=== PATIENT | female | born 1955 | race Caucasian/White ===

== ENCOUNTER 2018-04-22 00:18 | Outpatient (CLI) | payer BC, SELFPAY ==
--- NOTE | 2018-04-22 09:11 | DI.MAMMO_ITS ---
SYMPTOMS/DIAGNOSIS: SCREENING, Z12.31 MAMMOGRAM: Mammograms were interpreted according to the usual protocol including computer analysis with CAD system, tomosynthesis and C view imaging. The breasts are of moderate density with fairly symmetrical distribution of fibroglandular tissue. No dominant mass or clumped microcalcification is identified in either breast. Current examination is compared with previous examinations including February 2017 and there has been no gross interval change in appearance in comparison with the previous studies. CONCLUSION: No specific evidence of malignancy at this time. Routine screening examinations are suggested at yearly intervals in this age group according to the ACS/ACR guidelines. Category 1, breast density category B. MQSA ASSESSMENT OF FINDINGS: Negative. Category 1. Patient will receive a letter notifying them of these results. BI-RADS category B. There are scattered areas of fibroglandular density.
== END 2018-04-22 00:38 ==
PROVIDERS: PCP Family Medicine; Visit Provider Family Medicine
DX: Z12.31 Encounter for screening mammogram for malignant neoplasm of breast (principal)
CPT/HCPCS: 77063; 77067

== ENCOUNTER 2018-12-02 00:51 | Outpatient (CLI) | payer BC, SELFPAY ==
--- NOTE | 2018-12-02 15:33 | DI.US_ITS ---
SYMPTOM/DIAGNOSIS: SUPERFICIAL THROMBOPHLEBITIS, I80.9, H/O FALL, TENDER TO PALPATION LEFT LOWER EXTREMITY ULTRASOUND: Thrombus is visible in the popliteal vein and one of the posterior tibial veins. Thrombus is also visible in the saphenous vein extending 1 cm. from the junction with the common femoral vein. A palpable area in the calf corresponds to dilated superficial veins, which also contain thrombus. IMPRESSION: Deep venous thrombosis of the popliteal and one posterior tibial vein. Superficial thrombosis is seen in the saphenous and superficial calf veins.
== END 2018-12-02 01:11 ==
PROVIDERS: PCP Family Medicine; Visit Provider Family Medicine
DX: M79.662 Pain in left lower leg (principal); I82.432 Acute embolism and thrombosis of left popliteal vein; I82.442 Acute embolism and thrombosis of left tibial vein; I82.812 Embolism and thrombosis of superficial veins of left lower extremity
CPT/HCPCS: 93971

== ENCOUNTER 2019-06-13 09:49 | Outpatient (CLI) | payer BC, SELFPAY ==
[2019-06-17 16:36] LABS: Alkaline Phosphatase 132 U/L (35 - 104); Bone % 34.9 % (19.1-67.7); Liver % 60.9 % (27.8-76.3); Liver 2% 4.2 % (0.0-8.0)
== END 2019-06-13 10:09 ==
PROVIDERS: PCP Family Medicine; Visit Provider Naturopath
DX: R74.8 Abnormal levels of other serum enzymes (principal)
CPT/HCPCS: 36415; 84075; 84080

== ENCOUNTER 2019-07-04 03:09 | Outpatient (CLI) | payer BC, SELFPAY ==
--- NOTE | 2019-07-04 09:00 | DI.MAMMO_ITS ---
EXAM: MAMMO SCREENING CLINICAL HISTORY: screening TECHNIQUE: Mammograms were interpreted according to the usual protocol including computer analysis w [employer] CAD system, tomosynthesis and C-view imaging. COMPARISON: 2009 through 2018 FINDINGS: The breasts are composed of mainly fatty density , Breast Density category A. Right breast: No suspicious masses or suspicious microcalcifications are seen. No skin thickening or abnormal axillary lymph nodes are seen. There has been no significant change from prior exams. Left breast: There is an ovoid nodule in the lateral left breast in the anterior tissue measuring 9 m illimeters in greatest dimension. Spot compression views and ultrasound are requested for further ev aluation. No suspicious calcifications or architectural distortion is seen. IMPRESSION: Right breast: BIRADS Category 1, negative mammogram. Yearly screening mammography is recommended. Left breast: BI-RADS Cat 0 - Assessment Incomplete: Need additional imaging evaluation Breast density category A.
== END 2019-07-04 03:29 ==
PROVIDERS: PCP Family Medicine; Visit Provider Nurse Practitioner Family
DX: Z12.31 Encounter for screening mammogram for malignant neoplasm of breast (principal); R92.8 Other abnormal and inconclusive findings on diagnostic imaging of breast
CPT/HCPCS: 77063; 77067

== ENCOUNTER 2019-07-04 09:02 | Outpatient (CLI) | payer BC, SELFPAY ==
--- NOTE | 2019-07-04 | DI.DEXA_ITS ---
EXAM: XR DEXA BONE DENSITY W/WO SRAVAN INDICATION: SCREENING FOR OSTEOPOROSIS,Z13.820. COMPARISON: No exams were available for comparison TECHNIQUE: Hologic model Horizon C FINDINGS: The SRAVAN image shows no evidence of compression fractures. The bone mineral density measurements of t he lumbar spine correspond to a total T-score of 1.6, in the normal range. There are degenerative ch anges which could falsely elevate the bone mineral density measurements. The bone mineral density jamie surements of the left hip correspond to a total T-score of -0.5 and a femoral neck T-score of -2.1, i n the osteopenic range. The bone mineral density measurements of the left forearm correspond to a T- score of the distal 3rd of -2.2, in the osteopenic range. IMPRESSION: Osteopenia of the left forearm and left hip. Normal bone mineral density of the lumbar spine. DATA REPOSITORY: RADIATION DOSE DELIVERED:
[2019-07-04 10:26] LABS: ALT 12 U/L (14-59); AST 13 U/L (15-37); Albumin 3.7 g/dL (3.4-5.0); Alkaline Phosphatase 145 U/L (46-116); Anion Gap 9.2 mmol/L (3-11); BUN 17 mg/dL (7-18); Bilirubin, Total 0.3 mg/dL (0.2-1.0); CO2 27.8 mmol/L (21.0-32.0); Chloride 106 mmol/L (98-107); Glucose 92 mg/dL (74-106); Potassium 4.4 mmol/L (3.5-5.1); Sodium 143 mmol/L (136-145); Total Protein 6.6 g/dL (6.4-8.2)
[2019-07-04 11:11] LABS: Hemoglobin A1C 5.9 % (3.8-5.6)
== END 2019-07-04 09:22 ==
PROVIDERS: PCP Family Medicine; Visit Provider Naturopath
DX: M85.88 Other specified disorders of bone density and structure, other site (principal); R73.03 Prediabetes
CPT/HCPCS: 36415; 77080; 80053; 83036

== ENCOUNTER 2019-07-11 02:13 | Outpatient (CLI) | payer BC, SELFPAY ==
--- NOTE | 2019-07-11 | DI.US_ITS ---
EXAM: MG MAMMO SCREEN CALL BACK UNI AND US BREAST LT LIMITED CLINICAL HISTORY: F/U ABNL MAMMO, OVOID NODULE LAT LT BREAST. TECHNIQUE: Craniocaudal and mediolateral oblique Full Field Digital Mammography views of the left br east with Computer Aided Diagnosis followed by Tomosynthesis and left breast ultrasound. COMPARISON: Priors available for comparison. FINDINGS: Mammography/Tomosynthesis: Masses/Architectural Distortion: None seen. Asymmetric density in the upper-outer quadrant of the lef t breast, which appears stable compared to prior examinations. Microcalcifications: No suspicious pleomorphic-type are seen. Skin Thickening/Nipple Retraction: None. Left breast US: Echotexture: Normal appearance of the glandular tissue. Shadowing: No suspicious foci. Cyst: None. Solid lesions: None seen. Ductal dilation: None. IMPRESSION: 1. No evidence of malignancy is noted. 2. Six-month follow-up left mammogram is recommended. BI-RADS Cat 3 - 6 month - Probably Benign Finding: Recommend follow-up mammography in 6 months Breast Density - Category B - Scattered areas of fibroglandular density Findings were discussed with the patient on the date of the examination. A negative radiographic report should not delay biopsy if a dominant or clinically suspicious mass is present. Up to ten percent of cancers are not identified on mammography. A negative report may reinforce clinical impression. Adenosis and dense breasts may obscure an underlying neoplasm. False positive reports average 6 to 10%. Patient will receive a letter notifying them of these results.
== END 2019-07-11 02:33 ==
PROVIDERS: PCP Family Medicine; Visit Provider Nurse Practitioner Family
DX: Z12.31 Encounter for screening mammogram for malignant neoplasm of breast (principal); R92.8 Other abnormal and inconclusive findings on diagnostic imaging of breast; N60.82 Other benign mammary dysplasias of left breast
CPT/HCPCS: 76642; 77063; 77067

== ENCOUNTER 2019-11-12 01:13 | Outpatient (CLI) | payer BC, SELFPAY ==
[2019-11-12 10:14] LABS: Hemoglobin A1C 5.4 % (3.8-5.6)
[2019-11-12 10:34] LABS: ALT 10 U/L (14-59); AST 16 U/L (15-37); Albumin 3.5 g/dL (3.4-5.0); Alkaline Phosphatase 167 U/L (46-116); Anion Gap 10.6 mmol/L (3-11); BUN 11 mg/dL (7-18); Bilirubin, Total 0.7 mg/dL (0.2-1.0); CO2 25.4 mmol/L (21.0-32.0); Calcium 8.9 mg/dL (8.5-10.1); Calculated LDL 191 mg/dL (<100); Chloride 100 mmol/L (98-107); Cholesterol 270 mg/dL (<200); Glucose 100 mg/dL (74-106); HDL Cholesterol 54 mg/dL (40-60); Potassium 4.3 mmol/L (3.5-5.1); Sodium 136 mmol/L (136-145); Total Protein 6.4 g/dL (6.4-8.2); Triglyceride 128 mg/dL (<150)
[2019-11-13 04:55] LABS: Vitamin D 25 Total 45.4 ng/ml (30-100)
== END 2019-11-12 01:33 ==
PROVIDERS: PCP Family Medicine; Visit Provider Naturopath
DX: E78.5 Hyperlipidemia, unspecified (principal); R73.03 Prediabetes; R74.8 Abnormal levels of other serum enzymes; E55.9 Vitamin D deficiency, unspecified
CPT/HCPCS: 36415; 80053; 80061; 82306; 83036

== ENCOUNTER 2019-11-13 12:42 | Emergency (ER) | payer BC, SELFPAY ==
[2019-11-13] VITALS (38 sets, daily range): BP systolic 106–171; BP diastolic 54–111; PULSE 73–106; RESP 12–31; TEMP 36–37; O2SAT 96–100
--- NOTE | 2019-11-13 12:45 | RT.EKG_ITS ---
APPROVED REPORT Exam: Resting ECG Patient Location: E HR:82 bpm ECG Measurements Heart Rate [address] 147 P 43 QRSd 88 QRS -47 QT 393 T 17 QTc 453 <Conclusion> Sinus rhythm...normal P axis, V-rate 60- 99 Atrial premature complexes...SV complexes w/ short R-R intvls Inferior infarct, old...Q >35mS, II III aVF
--- NOTE | 2019-11-13 13:00 | DI.CT_ITS ---
EXAM: CT CHEST PE CTA CLINICAL HISTORY: Shortness of breath, history of PE TECHNIQUE: COMPARISON: US ABDOMEN ULTRASOUND (P) from 08/21/2011 FINDINGS: CT angiography of the chest was performed with intravenous infusion 83 cc of Omnipaque 350. Images o btained through the upper abdomen show a fluid attenuation 15 millimeter left hepatic lobe mass consi stent with cyst. Otherwise visualized portions of the liver and spleen are unremarkable. There is a large saddle pulmonary embolus with most prominent embolic components in the left lower lo be lobar segmental and subsegmental vessels. However emboli are noted in multiple right-sided vessel s as well and and also in the lingular vessels. Right lung is clear. Left lung contains peripheral basilar areas of infiltration suggesting pulmonar y infarction. There is a small left pleural effusion. Tracheobronchial tree appears intact. Thoracic aorta is of normal diameter with no evidence of dissection. IMPRESSION: Large saddle pulmonary embolus as described above, probable left lower lobe and lingular areas of per ipheral pulmonary infarction. Left pleural effusion noted. Intraventricular septum is appropriately convex. There is nearly equal diameter of main pulmonary ar marsha and thoracic aorta, each at about 3.1 cm. Mild right ventricular dilatation may be present. L V/RV ratio is greater than 1. No reflux into IVC or hepatic veins. The findings as described are co nsistent with normal to borderline status regarding right ventricular strain.
[2019-11-13 13:27] LABS: Abs Immature Grans 0.03 k/cumm (0.0-0.09); Absolute Basophil Count 0.02 k/cumm (0.0-0.2); Absolute Lymphocyte Count 0.91 k/cumm (1.2-3.4); Absolute Monocyte Count 0.85 k/cumm (0.11-0.7); Basophils % 0.2; Eosinophils % 0.2; HCT 37.6 % (36.0-46.0); HGB 12.2 g/dL (12.0-15.5); Immature Grans % 0.2 %; Lymphocytes % 7.5; Mean Corp. HGB Concentration 32.4 g/dL (32.0-36.0); Mean Corpuscular Hemoglobin 28.1 pg (27.0-33.0); Mean Corpuscular Volume 86.6 fL (80-95); Mean Platelet Volume 10.8 fL (8.0-11.0); Neutrophils % 84.9; Platelet Count 260 x1000/uL (130-400); RBC 4.34 m/cumm (4.00-5.20); RBC Distribution Width 13.3 % (11.7-14.6)
[2019-11-13 13:28] LABS: Absolute Eosinophil Count 0.02 k/cumm (0.0-0.7); Absolute Neutrophil Count 10.27 k/cumm (1.2-6.7)
[2019-11-13 13:47] LABS: ALT 12 U/L (14-59); AST 20 U/L (15-37); Albumin 3.5 g/dL (3.4-5.0); Alkaline Phosphatase 170 U/L (46-116); Anion Gap 9.6 mmol/L (3-11); BUN 10 mg/dL (7-18); Bilirubin, Total 0.5 mg/dL (0.2-1.0); CO2 25.4 mmol/L (21.0-32.0); CREATININE 0.83 mg/dL (0.55-1.02); Chloride 97 mmol/L (98-107); Glucose 118 mg/dL (74-106); NT-proBNP 996 pg/mL (<300); Potassium 3.8 mmol/L (3.5-5.1); Sodium 132 mmol/L (136-145); Total Protein 7.7 g/dL (6.4-8.2); Troponin I < 0.05 ng/mL (<0.06)
[2019-11-13] MEDS: Omnipaque 350 MG/ML 100 ML BTL 83 ML IV (13:52)
[2019-11-13] MEDS: Normal Saline - Diluent 50 ML VIAL IV (13:53)
[2019-11-13] MEDS: Normal Saline Flush 10 ML SYR IV (13:54)
[2019-11-13 13:55] LABS: PTT Activated 27.9 sec (21.0-31.4); Prothrombin Time 9.9 sec (9.3-11.0)
--- NOTE | 2019-11-13 14:46 | ED.GENADUL_ITS ---
Discharge Plan Disposition Patient Disposition: [facility] Condition: Serious Discharge Details Chief Complaint: SOB Clinical Impression: Acute saddle pulmonary embolism Primary Care Provider: Jenn Escobar ED Provider: Prem Lerma Home Meds and New Rx's Prescriptions: No Action cardio vh PO TID RF: 0 Nature-Throid 16.25 MG tablet 16.25 mg PO DAILY RF: 0 cholecalciferol (vitamin D3) 5,000 UNIT tablet 5,000 unit PO DAILY RF: 0 Zinc supreme PO DAILY RF: 0 Niacin [Plain Niacin] 250 MG tablet 250 mg PO DAILY RF: 0 Medical Decision Making 64-year-old female with history of thyroid disease, DVT, not anticoagulated, hyperlipidemia, presents to the ER today with 1 week history of shortness of breath and one-sided chest pain. Initially my primary concern is that of PE given her shortness of breath, history of DVT and not currently anticoagulated. Denies cough or fever. Infectious process less likely. Pain appears to be all left lateral chest associate with shortness of breath, denies any anterior chest pain or any pain that radiates down her arm. Less likely ACS. Will initiate a cardiac work-up and go straight to a chest CTA for potential PE. She clinically appears well, hemodynamically stable. Work-up reveals a white count of 12.1, sodium 132, chloride 97, glucose 118. Magnesium 2, troponin less than 0.05. BNP 996. I received a phone call from radiology regarding the CT findings. Large saddle pulmonary embolus, probable left lower lobe and lingular areas of peripheral pulmonary infarct. Left pleural effusion noted. The findings are consistent with normal to borderline status regarding right ventricular strain. Patient with a large saddle pulmonary emboli. I reached out to our hospitalist team to discuss treatment and admission however I was referred to the PE team at [facility] for consultation and hopeful transfer as we do not have any ICU beds. I then spoke with the PE team at [facility]. I spoke with Dr. Zhang, who does not believe given the patient's presentation that heparin is indicated. Recommends Lovenox 1 mg/kg, order written. The accepting physician will be Dr. Jimenes. Lovenox administered. I discussed the conversation with our hospitalist team and [facility] with the patient. She understands that she will be transferred into the care of Dr. Jimenes at [facility] for her PE care. Patient remains hemodynamically stable. She has no additional questions or concerns. Medical Records Medical records reviewed: Yes I reviewed the patient's medical records. Lab Data Lab results reviewed: Yes I reviewed the patient's lab results. Lab results narrative: Laboratory Tests Range/Units 11/13/19 11/13/19 11/13/19 13:10 13:10 13:10 WBC (4.4-10.8) k/cumm 12.10 H RBC (4.00-5.20) m/cumm 4.34 Hgb (12.0-15.5) g/dL 12.2 Hct (36.0-46.0) % 37.6 MCV (80-95) fL 86.6 MCH (27.0-33.0) pg 28.1 MCHC (32.0-36.0) g/dL 32.4 RDW (11.7-14.6) % 13.3 Plt Count (130-400) x1000/uL 260 MPV (8.0-11.0) fL 10.8 Immature Gran % % 0.2 Neutrophils % 84.9 Lymphocytes % 7.5 Monocytes % 7.0 Eosinophils % 0.2 Basophils % 0.2 Absolute Neutrophils (1.2-6.7) k/cumm 10.27 H Absolute Lymphocytes (1.2-3.4) k/cumm 0.91 L Absolute Monocytes (0.11-0.7) k/cumm 0.85 H Absolute Eosinophils (0.0-0.7) k/cumm 0.02 Absolute Basophils (0.0-0.2) k/cumm 0.02 PT (9.3-11.0) sec 9.9 INR (0.9-1.1) 1.0 APTT (21.0-31.4) sec 27.9 Sodium (136-145) mmol/L 132 L Potassium (3.5-5.1) mmol/L 3.8 Chloride (98-107) mmol/L 97 L Carbon Dioxide (21.0-32.0) mmol/L 25.4 Anion Gap (3-11) mmol/L 9.6 BUN (7-18) mg/dL 10 Creatinine (0.55-1.02) mg/dL 0.83 Estimated GFR/1.73 m2 (mL/min/1.73m2) >= 60.00 Glucose (74-106) mg/dL 118 H Calcium (8.5-10.1) mg/dL 9.0 Magnesium (1.8-2.4) mg/dL 2.0 Total Bilirubin (0.2-1.0) mg/dL 0.5 AST (15-37) U/L 20 ALT (14-59) U/L 12 L Alkaline Phosphatase (46-116) U/L 170 H Troponin I (<0.06) ng/mL < 0.05 NT-Pro-B Natriuret Pep (<300) pg/mL 996 H Total Protein (6.4-8.2) g/dL 7.7 Albumin (3.4-5.0) g/dL 3.5 ECG Data Attestation: I personally reviewed and interpreted this ECG (s) as follows: Prior ECG tracings: available for review Interpretation: Reviewed and interpreted with Dr. Case, please see his official report. Sinus rhythm, ventricular rate of 82. No STEMI HPI General Mode of arrival: ambulatory . Date/Time Provider Initiated Documentation: 11/13/19 13:03 . Limitations to Documentation: no limitations . Information obtained by: patient . HPI Narrative: This is a 64-year-old female with history of DVT, currently not anticoagulated, lymphedema, thyroid disease, hyperlipidemia, presents to the ER complaining of mild shortness of breath for 1 week, worsening over the past 4 days associate with left-sided chest pain- pressure. She reports the pain is worse with taking a deep breath or lying flat. She reports that her shortness of breath is worse with exertion. The pain now travels up to her shoulder. She initially took Motrin that helped how ever the Motrin is no longer helping. Patient reports that she is seen by a homeopathic provider who has taken her off of all of her medications except for her thyroid pill. She reports that she has not been anticoagulated since last year. Related Data Home Medications Medication Instructions Recorded Confirmed cholecalciferol (vitamin D3) 5,000 unit PO DAILY 03/02/14 11/13/19 thyroid (pork) [Nature-Throid] 16.25 mg PO DAILY 03/02/14 11/13/19 Zinc [place] PO DAILY 01/25/16 Niacin [Plain Niacin] 250 mg PO DAILY tab-cap 08/10/17 11/13/19 cardio vh PO TID 01/24/19 Allergies Allergy/AdvReac Type Severity Reaction Status Date / Time No Known Drug Allergies Allergy Verified 11/13/19 13:06 General Stated Complaint: SOB DANIELLE: 2 Review of Systems Constitutional Constitutional: Denies fatigue, Denies fever(s) and Denies weakness ENT Ears, Nose, Mouth, and Throat: Denies neck pain and Denies sore throat Cardiovascular Cardiovascular: Reports chest pain and Reports dyspnea Respiratory Respiratory: Denies cough and Reports dyspnea Gastrointestinal Gastrointestinal: Denies abdominal pain, Denies nausea and Denies vomiting Genitourinary Genitourinary: Denies dysuria Musculoskeletal Musculoskeletal: Denies back pain, Denies neck pain, Denies numbness and Denies tingling Integumentary/Breasts Skin/Breast: Denies rash Neurologic Neurologic: Denies numbness, Denies tingling and Denies weakness Endocrine Endocrine: Denies fatigue Hematologic/Lymphatic Hematologic/Lymphatic: Denies easy bleeding and Denies easy bruising PFSH Medical History Hx of deep venous thrombosis (Acute) after a fall in 2019 Surgical History Tonsillectomy and adenoidectomy Family History Mother Hyperlipidemia COPD (chronic obstructive pulmonary disease) 85 Father Myocardial infarction Social History Smoking/Tobacco Use Status: Never Substance use type: does not use Current gender identity: female Exam Const General: cooperative, healthy appearing, comfortable and no acute distress Orientation: alert, awake and oriented x3 HENMT Head: normal to inspection, normocephalic and atraumatic Face and sinus: normal facial exam Mouth: moist mucous membranes Throat: posterior oropharynx normal Eyes Conjunctivae: conjunctivae normal Sclera: sclerae normal Neck Neck: normal visual inspection, full ROM, trachea midline, supple and nontender Chest Chest: normal inspection of the chest and normal palpation of entire chest wall Resp Effort & Inspection: normal respiratory effort and able to speak in complete sentences Auscultation: diminished lung sounds bilaterally in the lower lung waldron Cardio Rate: regular rate Rhythm: regular rhythm GI Palpation: soft and nontender Back/Spine/Pelvis Back: No back tenderness Skin General skin exam: no rashes or lesions noted Neuro General: patient alert, patient awake, patient oriented x3, moves all extremities and no focal motor deficits Cognition: normal cognition Speech: speech normal Gait: normal gait Motor: muscle tone normal throughout Sensory Exam: no sensory deficits noted Extrem Right upper extremity: normal to inspection, full ROM and normal capillary refill Left upper extremity: normal to inspection, full ROM, normal capillary refill and shoulder/upper arm Details: inspection abnormal and normal ROM; no tenderness Right lower extremity: full ROM, normal capillary refill, edema Details: pitting and 2+ (Chronic per patient) and lower leg Details: no tenderness Left lower extremity: full ROM, normal capillary refill, edema Details: pitting and 2+ (Chronic per patient) and lower leg Details: no tenderness Psych Appearance: grossly normal Mental Status: mental status grossly normal Course Vital Signs Vital signs: Vital Signs Temperature 37 C 11/13/19 13:00 Pulse 83 11/13/19 13:00 Respiratory Rate 16 11/13/19 13:00 Blood Pressure 171/66 H 11/13/19 13:00 Pulse Oximetry 100 11/13/19 13:00 Temperature 37 C 11/13/19 13:00 Temperature Source Skin 11/13/19 13:00 Pulse 88 11/13/19 13:31 Pulse 79 11/13/19 14:30 Respiratory Rate 22 11/13/19 14:30 Respiratory Effort 11/13/19 13:12 Respiratory Depth Normal 11/13/19 13:12 Respiratory Pattern Normal 11/13/19 13:12 Blood Pressure 133/86 11/13/19 13:31 Blood Pressure Mean 96 11/13/19 13:31 Blood Pressure Position Sitting 11/13/19 13:00 Pulse Oximetry 100 11/13/19 14:29 Oxygen Delivery Method Room Air 11/13/19 13:00 Oxygen Flow Rate 0 11/13/19 13:00 Pain Level 4 11/13/19 13:12 Lab/Test Results Lab/Test Results: Laboratory Tests Range/Units 11/13/19 11/13/19 11/13/19 13:10 13:10 13:10 WBC (4.4-10.8) k/cumm 12.10 H RBC (4.00-5.20) m/cumm 4.34 Hgb (12.0-15.5) g/dL 12.2 Hct (36.0-46.0) % 37.6 MCV (80-95) fL 86.6 MCH (27.0-33.0) pg 28.1 MCHC (32.0-36.0) g/dL 32.4 RDW (11.7-14.6) % 13.3 Plt Count (130-400) x1000/uL 260 MPV (8.0-11.0) fL 10.8 Immature Gran % % 0.2 Neutrophils % 84.9 Lymphocytes % 7.5 Monocytes % 7.0 Eosinophils % 0.2 Basophils % 0.2 Absolute Neutrophils (1.2-6.7) k/cumm 10.27 H Absolute Lymphocytes (1.2-3.4) k/cumm 0.91 L Absolute Monocytes (0.11-0.7) k/cumm 0.85 H Absolute Eosinophils (0.0-0.7) k/cumm 0.02 Absolute Basophils (0.0-0.2) k/cumm 0.02 PT (9.3-11.0) sec 9.9 INR (0.9-1.1) 1.0 APTT (21.0-31.4) sec 27.9 Sodium (136-145) mmol/L 132 L Potassium (3.5-5.1) mmol/L 3.8 Chloride (98-107) mmol/L 97 L Carbon Dioxide (21.0-32.0) mmol/L 25.4 Anion Gap (3-11) mmol/L 9.6 BUN (7-18) mg/dL 10 Creatinine (0.55-1.02) mg/dL 0.83 Estimated GFR/1.73 m2 (mL/min/1.73m2) >= 60.00 Glucose (74-106) mg/dL 118 H Calcium (8.5-10.1) mg/dL 9.0 Magnesium (1.8-2.4) mg/dL 2.0 Total Bilirubin (0.2-1.0) mg/dL 0.5 AST (15-37) U/L 20 ALT (14-59) U/L 12 L Alkaline Phosphatase (46-116) U/L 170 H Troponin I (<0.06) ng/mL < 0.05 NT-Pro-B Natriuret Pep (<300) pg/mL 996 H Total Protein (6.4-8.2) g/dL 7.7 Albumin (3.4-5.0) g/dL 3.5 Critical Care Time Critical Care Time Critical Care Time: Yes Total Critical Care Time: 45 Attestation: Upon my evaluation, this patient had a high probability of clinica lly significant, life-threatening deterioration due to their current medical conditions, which required my direct attention, intervention, and personal management. I have personally provided greater than 30 minutes of critical care time exclusive of the time spend on separately billable procedures. Time includes obtaining a history, examining the patient, pulse oximetry, review of laboratory data, radiology results, discussion with consultants, arranging urgent treatment with development of a management plan, evaluation of patient's response to treatment, and monitoring for potential decompensation. Interventions were performed as documented above.
[2019-11-13] MEDS: Enoxaparin 120 MG/0.8 ML SYR 105 MG SC (15:34)
[2019-11-14 02:02] LABS: COVID-19 RT-PCR UVMMC Result Negative (Negative)
--- NOTE | 2019-11-14 10:54 | PDOC.ERCMPRO ---
- If Service Date Differs Date of service: 11/13/19 Time of Service: 10:54 Care Management Progress Note S/O: CM meets with Roseanna at the request of ED provider to discuss financial difficulties around purchasing medication. Roseanna advises she sees Krista Monzon, naturopathic doctor. She states her PCP used to prescribe her medications, but she switched to a more holistic way of treating her medical issues. Roseanna has health insurance through her employer but the insurance will not pay for naturopathic medicine. She previously paid out of pocket for the medicine prescribed by Dr. Monzon, but the pandemic has had an adverse effect on her household income, as she is working less hours and her partner has also seen a decrease in his income. offers some community resources to help pay for the medication, but Roseanna declines, saying she is meeting with Dr. Monzon in November and the plan is for them to review her medication and to discontinue some of them. A: Roseanna is a 64 year old female who presents in the ED for shortness of breath. P: Testing reveals Roseanna has a massive pulmonary embolism requiring transfer to [facility]. Transport is done via [facility] sr community manager ground transportation.
== END 2019-11-13 17:45 | disposition short-term general hospital (02) ==
PROVIDERS: Emergency Provider Physician Assistant; PCP Family Medicine
DX: I26.92 Saddle embolus of pulmonary artery without acute cor pulmonale (principal); Z86.718 Personal history of other venous thrombosis and embolism; R07.9 Chest pain, unspecified; Z03.818 Encounter for observation for suspected exposure to other biological agents ruled out
CPT/HCPCS: 36415; 71275; 80053; 93005; 96372; 96374; 99291; U0003; 83735; 83880; 84484; 85025; 85610; 85730; 93010; J1650; J2997; J3490

== ENCOUNTER 2020-03-10 01:46 | Outpatient (CLI) | payer BC, SELFPAY ==
--- NOTE | 2020-03-10 | DI.MAMMO_ITS ---
EXAM: MG MAMMO DIAGNOSTIC UNI CLINICAL HISTORY: F/U ABNL MAMMO,,6 MO FOLLOW UP. TECHNIQUE: Craniocaudal and mediolateral oblique Full Field Digital Mammography views of the left br east with Computer Aided Diagnosis followed by Tomosynthesis. COMPARISON: Priors available for comparison FINDINGS: Mammography/Tomosynthesis: Masses/Architectural Distortion: Stable asymmetric density in the outer left breast. No suspicious m asses. Microcalcifictions: No suspicious pleomorphic-type are seen. Skin Thickening/Nipple Retraction: None. IMPRESSION: 1. No evidence of malignancy is noted. 2. A six-month follow-up left mammogram is recommended for re-evaluation. 3. The findings were discussed with the patient on the date of the examination. BI-RADS Category 3 - 6 month - Probably Benign Finding: Recommend follow-up mammography in 6 months Breast Density - Category B - Scattered areas of fibroglandular density A negative radiographic report should not delay biopsy if a dominant or clinically suspicious mass is present. Up to ten percent of cancers are not identified on mammography. A negative report may reinforce clinical impression. Adenosis and dense breasts may obscure an underlying neoplasm. False positive reports average 6 to 10%. Patient will receive a letter notifying them of these results.
== END 2020-03-10 02:06 ==
PROVIDERS: PCP Family Medicine; Visit Provider Nurse Practitioner Family
DX: R92.8 Other abnormal and inconclusive findings on diagnostic imaging of breast (principal)
CPT/HCPCS: 77061; 77065; G0279

== ENCOUNTER 2020-03-10 04:38 | Outpatient (CLI) | payer BC, SELFPAY ==
[2020-03-10 09:00] LABS: Hemoglobin A1C 5.6 % (<5.7)
[2020-03-10 09:41] LABS: Calculated LDL 219 mg/dL (<100); Cholesterol 318 mg/dL (<200); GGT 20 U/L (5-55); HDL Cholesterol 64 mg/dL (40-60); Triglyceride 177 mg/dL (<150)
[2020-03-11 04:47] LABS: Vitamin D 25 Total 39.6 ng/ml (30-100)
== END 2020-03-10 04:58 ==
PROVIDERS: PCP Family Medicine; Visit Provider Family Medicine
DX: E78.5 Hyperlipidemia, unspecified (principal); R73.03 Prediabetes; E55.9 Vitamin D deficiency, unspecified; R74.8 Abnormal levels of other serum enzymes
CPT/HCPCS: 80061; 82306; 82977; 83036; 83915

== ENCOUNTER 2020-04-12 16:44 | Outpatient (REF) | payer BC, SELFPAY ==
--- NOTE | 2020-04-12 16:00 | PAPFT_PTH ---
PATIENT: Roseanna Olson LOC: [facility] U#:[id number] AGE/SX: 65/F ROOM: RE04/12/[address]: NALLELY Carty : 1955 BED: DIS: 04/12/2020 SPEC #: [id number] RECD: 04/12/20 17:59 STATUS: MORALES REQ #: [id number] DIONNE: 04/12/20 16:[address]: My Espinoza DEPT: [facility] Cytology RECD BY: Myesha Schultz ENTERED: 04/12/20 17:59 SP TYPE: PAPFT OTHR DR: Jenn Escobar Tissues: 1 - CX/ENDOCX FOR PAP SMEARS Procedures: PAP THIN PREP/UVM Screening HPV DNA PROBE Comments: [id number]
== END 2020-04-12 17:04 ==
LOC: LBN 16:44
PROVIDERS: PCP Family Medicine; Visit Provider Nurse Practitioner Family
DX: R35.0 Frequency of micturition (principal); Z12.4 Encounter for screening for malignant neoplasm of cervix; Z11.51 Encounter for screening for human papillomavirus (HPV)
CPT/HCPCS: 88142; 87086; 87624

== ENCOUNTER 2020-04-16 11:35 | Outpatient (REF) | payer BC, SELFPAY ==
[2020-04-16 15:07] LABS: TSH (W/Ref FT4) 1.26 uIU/mL (0.36-3.74)
== END 2020-04-16 11:55 ==
LOC: NCHCN 11:35
PROVIDERS: PCP Family Medicine; Visit Provider Family Medicine
DX: E03.9 Hypothyroidism, unspecified (principal)
CPT/HCPCS: 84443

== ENCOUNTER 2020-05-14 04:10 | Outpatient (CLI) | payer BC, SELFPAY ==
[2020-05-14 11:20] LABS: ALT 18 U/L (14-59); AST 20 U/L (15-37); Albumin 3.8 g/dL (3.4-5.0); Alkaline Phosphatase 139 U/L (46-116); Anion Gap 5.6 mmol/L (3-11); BUN 14 mg/dL (7-18); Bilirubin, Total 0.4 mg/dL (0.2-1.0); CO2 29.4 mmol/L (21.0-32.0); CREATININE 0.97 mg/dL (0.55-1.02); Chloride 103 mmol/L (98-107); Estimated GFR 57.64 (mL/min/1.73m2); Glucose 94 mg/dL (74-106); PHOSPHORUS 4.3 mg/dL (2.6-4.7); Potassium 4.5 mmol/L (3.5-5.1); Sodium 138 mmol/L (136-145); Total Protein 6.7 g/dL (6.4-8.2)
[2020-05-17 10:06] LABS: Beta-CrossLaps (B-CTx) 768 pg/mL
[2020-05-17 10:55] LABS: Parathyroid Hormone,Intact 79 pg/mL (19-88)
== END 2020-05-14 04:30 ==
PROVIDERS: PCP Family Medicine; Visit Provider Internal Medicine Endocrinology, Diabetes & Metabolism
DX: R74.8 Abnormal levels of other serum enzymes (principal)
CPT/HCPCS: 36415; 80053; 82523; 83970; 84100

== ENCOUNTER 2020-07-14 00:57 | Outpatient (CLI) | payer BC, SELFPAY ==
--- NOTE | 2020-07-14 15:21 | DI.MAMMO_ITS ---
EXAM: MG MAMMO SCREENING CLINICAL HISTORY: screening. TECHNIQUE: Bilateral full field digital CC and MLO mammographic images were obtained with 3D tomosyn thesis and utilizing computer aided detection (CAD). COMPARISON: Prior mammograms dating back to 2010, the most recent being June 2019 and left breast d iagnostic study 03/10/2020. Breast ultrasound June 2019 was reviewed FINDINGS: Previously described asymmetric density laterally in left breast is again noted, unchanged.. This re peterson benign appearance. There are no spiculated masses nor malignant appearing microcalcification groups. There is no signif icant architectural distortion nor skin thickening-retraction. IMPRESSION: Stable benign findings. No radiographic evidence of malignancy. BI-RADS Category 2 - Benign Findings Breast Density - Category B - Scattered areas of fibroglandular density Breast density Category C or D implies that the patient has dense breast tissue. Dense breast tissue can make it harder to find cancer on a mammogram. Dense breast tissue is also associated with an incr eased risk of breast cancer. This information about the result of the mammogram report was provided to the patient to raise their awareness. Use this report when you speak with the patient about their risks for breast cancer, which includes their family history. At that time, you may recommend additional screening tests (Ultrasoun d or MRI) as these tests may add significant information. A negative radiographic report should not delay biopsy if a dominant or clinically suspicious mass is present. Up to ten percent of cancers are not identified on mammography. A negative report may reinforce clinical impression. Adenosis and dense breasts may obscure an underlying neoplasm. False positive reports average 6 to 10%. Patient will receive a letter notifying them of these results.
== END 2020-07-14 01:17 ==
PROVIDERS: PCP Family Medicine; Visit Provider Nurse Practitioner Family
DX: Z12.31 Encounter for screening mammogram for malignant neoplasm of breast (principal)
CPT/HCPCS: 77063; 77067

== ENCOUNTER 2020-08-13 02:04 | Outpatient (CLI) | payer BC, SELFPAY ==
[2020-08-13 09:45] LABS: Hemoglobin A1C 5.6 % (<5.7)
[2020-08-13 10:47] LABS: Calculated LDL 228 mg/dL (<100); Cholesterol 322 mg/dL (<200); HDL Cholesterol 70 mg/dL (40-60); Triglyceride 123 mg/dL (<150)
[2020-08-16 05:03] LABS: Vitamin D 25 Total 45.8 ng/mL (30-100)
[2020-08-16 16:12] LABS: Zinc, Serum 0.71 mcg/mL (0.66-1.10)
== END 2020-08-13 02:05 | disposition home or self-care (01) ==
LOC: LBO 02:04
PROVIDERS: PCP Family Medicine; Visit Provider Naturopath
DX: E78.5 Hyperlipidemia, unspecified (principal); E55.9 Vitamin D deficiency, unspecified; R73.03 Prediabetes; L60.3 Nail dystrophy
CPT/HCPCS: 36415; 80061; 82306; 83036; 84630

== ENCOUNTER 2021-03-10 02:27 | Outpatient (CLI) | payer BC, SELFPAY ==
[2021-03-10 08:59] LABS: Abs Immature Grans 0.01 10^3/uL (0.0-0.06); Absolute Basophil Count 0.06 10^3/uL (0.0-0.2); Absolute Eosinophil Count 0.09 10^3/uL (0.0-0.7); Absolute Lymphocyte Count 2.01 10^3/uL (1.2-3.4); Absolute Monocyte Count 0.53 10^3/uL (0.1-0.8); Absolute Neutrophil Count 3.24 10^3/uL (1.2-6.7); Eosinophils % 1.5; HCT 37.6 % (36.0-46.0); HGB 11.7 g/dL (11.2-15.7); Immature Grans % 0.2; Lymphocytes % 33.8; MCHC 31.1 % (32.0-36.0); MPV 9.7 fL (8.0-11.0); Monocytes % 8.9; Neutrophils % 54.6; Nucleated RBC 0 %; Platelet Count 309 10^3/uL (130-400); RBC 4.18 10^6/uL (3.93-5.22); RDW 12.9 % (11.7-14.6); RDW-SD 42.5 fL; WBC 5.94 10^3/uL (4.4-10.8)
[2021-03-10 09:32] LABS: Hemoglobin A1C 5.8 % (<5.7)
[2021-03-10 14:52] LABS: Alkaline Phosphatase 138 U/L (46-116)
[2021-03-10 15:24] LABS: Albumin 3.7 g/dL (3.4-5.0); Alkaline Phosphatase 137 U/L (46-116); BUN 10 mg/dL (7-18); Bilirubin, Total 0.4 mg/dL (0.2-1.0); CREATININE 0.8 mg/dL (0.55-1.02); Calcium 8.8 mg/dL (8.5-10.1); Calculated LDL 206 mg/dL (<100); Cholesterol 298 mg/dL (<200); Glucose 95 mg/dL (74-106); HDL Cholesterol 63 mg/dL (40-60); Total Protein 6.4 g/dL (6.4-8.2); Triglyceride 148 mg/dL (<150)
[2021-03-10 15:25] LABS: ALT 13 U/L (14-59); AST 16 U/L (15-37); Anion Gap 7.3 mmol/L (3-11); CO2 29.7 mmol/L (21.0-32.0); Chloride 103 mmol/L (98-107); Potassium 4.6 mmol/L (3.5-5.1); Sodium 140 mmol/L (136-145)
== END 2021-03-10 02:28 | disposition home or self-care (01) ==
LOC: LBO 02:27
PROVIDERS: Internal Medicine Endocrinology, Diabetes & Metabolism; PCP Family Medicine; Visit Provider Naturopath
DX: R74.8 Abnormal levels of other serum enzymes (principal); E78.5 Hyperlipidemia, unspecified; Z86.718 Personal history of other venous thrombosis and embolism
CPT/HCPCS: 36415; 80053; 80061; 83036; 84075; 85025

== ENCOUNTER 2021-05-30 15:19 | Outpatient (CLI) | payer BC, SELFPAY ==
--- NOTE | 2021-05-30 15:15 | DI.RAD_ITS ---
Exam(s) XR STANDING ALIGNMENT XR KNEE RT 1V EXAM: XR STANDING ALIGNMENT CLINICAL HISTORY: preop. TECHNIQUE: 2D digital imaging was performed. Standing AP views were performed from the pelvis throu gh the ankles. COMPARISON: CR XR KNEE 4 VIEW LEFT, XR KNEE 4 VIEW RIGHT from 07/31/2019 CR XR KNEE RT 1V from 05/30/2021 FINDINGS: BONES: No acute fracture is present. No bony destructive lesion is seen. JOINTS: Knees: There is severe narrowing of the medial femoral tibial joint space of the right knee w ith a [id number] appearance. Osteophytes are noted at the femoral condyles and tibial plateaus. T here is varus angulation. Spurring is also seen at the patellofemoral joint. The left knee shows mo derate narrowing of the medial femoral tibial joint space as well as osteophytes from both medial and lateral femoral condyles and tibial plateaus. There is an overall leg length discrepancy at the lev el level of the femoral heads with the left femoral head projecting 10 millimeters superior to the ri ght. The ankle and hip joints are unremarkable. SOFT TISSUE: Normal. IMPRESSION: Severe degenerative changes of medial femorotibial joint space of the right knee. Leg length discrep lorena of approximately 10 millimeters. DATA REPOSITORY: RADIATION DOSE DELIVERED:
== END 2021-05-30 15:20 | disposition home or self-care (01) ==
LOC: DIORS 15:19
PROVIDERS: PCP Family Medicine; Referring Provider Family Medicine; Visit Provider Physician Assistant Surgical
DX: M17.11 Unilateral primary osteoarthritis, right knee (principal); M21.751 Unequal limb length (acquired), right femur
CPT/HCPCS: 73560; 77073

== ENCOUNTER 2021-08-12 00:14 | Outpatient (CLI) | payer BC, SELFPAY ==
--- NOTE | 2021-08-12 | DI.MAMMO_ITS ---
Exam(s) MAMMO SCREENING EXAM: MAMMO SCREENING CLINICAL HISTORY: SCREENIN, Z12.39 TECHNIQUE: Bilateral full field digital CC and MLO mammographic images were obtained with 3D tomosyn thesis and utilizing computer aided detection (CAD). COMPARISON: Available for comparison. FINDINGS: Masses/Architectural Distortion: There is a stable nodular density in the outer left breast seen on t he craniocaudad view. No suspicious masses are seen. No areas of architectural distortion are seen. Microcalcifications: No suspicious pleomorphic-type are seen. Skin Thickening/Nipple Retraction: None. IMPRESSION: 1. No significant interval change with no specific features of malignancy noted. 2. Unless there is more urgent need, screening mammography is recommended, as per [employer] guidelines. BI-RADS Category 1 - Negative Breast Density - Category B - Scattered areas of fibroglandular density Breast density category C or D implies that the patient has dense breast tissue. Dense breast tissue is very common and is not abnormal but dense breast tissue can make it harder to find cancer on a ma mmogram. Also, dense breast tissue may increase their breast cancer risk. This information about the result of the mammogram report was provided to the patient to raise their awareness. Use this report when you speak with the patient about their risks for breast cancer, which includes their family hist ory. At that time, you may recommend for more screening tests (Ultrasound or MRI) as they might be us eful based on their risk. A negative radiographic report should not delay biopsy if a dominant or clinically suspicious mass is present. Up to ten percent of cancers are not identified on mammography. A negative report may reinforce clinical impression. Adenosis and dense breasts may obscure an underlying neoplasm. False positive reports average 6 to 10%. Patient will receive a letter notifying them of these results.
--- NOTE | 2021-08-12 | DI.DEXA_ITS ---
Exam(s) XR DEXA BONE DENSITY W/WO SRAVAN EXAM: XR DEXA BONE DENSITY W/WO SRAVAN CLINICAL HISTORY: OSTEOPENIA, M85.80, ELEVATED ALKALINE PHOSPHATASE, R74.8 TECHNIQUE: COMPARISON: CR XR DEXA BONE DENSITY W/WO SRAVAN from 07/04/2019 FINDINGS: Lateral Spine Image: Unremarkable. No compression deformities identified. Left hip: Total T-Score: -0.9. This compares to -0.5 on the prior examination for a decrease of 4.9 percent in the bone mineral density. Total Z-Score: 0.4 T- and Z-scores: Within normal limits. Note is made of a T-score of -2.9 in the femoral neck. Lumbar Spine: Total T-Score: 1.3. This compares with a total T-score of 1.6 on the prior examination for decrease i n bone mineral density of 2.6 percent. Total Z-Score: 3.2 T- and Z-scores: Within normal limits. IMPRESSION: Findings of osteoporosis in the femoral neck.
== END 2021-08-12 00:34 ==
PROVIDERS: PCP Family Medicine; Visit Provider Family Medicine
DX: Z12.31 Encounter for screening mammogram for malignant neoplasm of breast (principal); M85.88 Other specified disorders of bone density and structure, other site; R74.8 Abnormal levels of other serum enzymes; M81.0 Age-related osteoporosis without current pathological fracture
CPT/HCPCS: 77063; 77067; 77080

== ENCOUNTER 2021-08-29 02:30 | Outpatient (CLI) | payer BC, SELFPAY ==
[2021-08-29 10:58] LABS: ALT 14 U/L (14-59); AST 19 U/L (15-37); Albumin 3.9 g/dL (3.4-5.0); Alkaline Phosphatase 162 U/L (46-116); Anion Gap 10.6 mmol/L (3-11); BUN 12 mg/dL (7-18); Bilirubin, Total 0.5 mg/dL (0.2-1.0); CO2 26.4 mmol/L (21.0-32.0); CREATININE 0.8 mg/dL (0.55-1.02); Calcium 8.8 mg/dL (8.5-10.1); Calculated LDL 241 mg/dL (<100); Chloride 102 mmol/L (98-107); Cholesterol 334 mg/dL (<200); Glucose 90 mg/dL (74-106); HDL Cholesterol 73 mg/dL (40-60); Potassium 4.1 mmol/L (3.5-5.1); Sodium 139 mmol/L (136-145); Total Protein 6.7 g/dL (6.4-8.2); Triglyceride 103 mg/dL (<150)
[2021-08-29 11:18] LABS: Vitamin D 25 Total 37.3 ng/mL (30-100)
[2021-08-29 11:41] LABS: PHOSPHORUS 4.4 mg/dL (2.6-4.7)
[2021-08-29 11:42] LABS: Hemoglobin A1C 6.8 % (<5.7)
[2021-08-30 09:15] LABS: Parathyroid Hormone,Intact 81 pg/mL (19-88)
[2021-08-30 09:48] LABS: HIV-1/2 Ag & Ab Screen Negative (Negative)
[2021-08-30 09:56] LABS: Hepatitis C Ab w Rflx HCV PCR Negative (Negative)
[2021-08-30 15:33] LABS: Beta-CrossLaps (B-CTx) 777 pg/mL
== END 2021-08-29 02:31 | disposition home or self-care (01) ==
LOC: LBO 02:30
PROVIDERS: PCP Family Medicine; Visit Provider Internal Medicine Endocrinology, Diabetes & Metabolism
DX: Z00.00 Encounter for general adult medical examination without abnormal findings (principal); Z11.4 Encounter for screening for human immunodeficiency virus [HIV]; Z11.59 Encounter for screening for other viral diseases; R74.8 Abnormal levels of other serum enzymes; E78.5 Hyperlipidemia, unspecified
CPT/HCPCS: 36415; 80053; 80061; 82306; 82523; 86803; 87389; 83036; 83970; 84100

== ENCOUNTER 2021-10-10 03:52 | Outpatient (CLI) | payer BC, SELFPAY | END 2021-10-10 03:53 | disposition home or self-care (01) | LOC: LBO 03:52 | PROVIDERS: PCP Family Medicine; Visit Provider Student in an Organized Health Care Education/Training Program ==

== ENCOUNTER 2021-10-10 04:00 | Outpatient (CLI) | payer BC, SELFPAY ==
[2021-10-10 08:28] LABS: HCT 33.6 % (36.0-46.0); MCH 28.3 pg (27.0-33.0); MCHC 32.7 % (32.0-36.0); MCV 86 fL (80-95); MPV 10.3 fL (8.0-11.0); Platelet Count 343 10^3/uL (130-400); RBC 3.89 10^6/uL (3.93-5.22); RDW 13.9 % (11.7-14.6); RDW-SD 43.8 fL; WBC 5.77 10^3/uL (4.4-10.8)
[2021-10-10 08:54] LABS: Anion Gap 9.2 mmol/L (3-11); BUN 16 mg/dL (7-18); CO2 24.8 mmol/L (21.0-32.0); CREATININE 0.8 mg/dL (0.55-1.02); Calcium 8.7 mg/dL (8.5-10.1); Chloride 104 mmol/L (98-107); Glucose 96 mg/dL (74-106); Sodium 138 mmol/L (136-145)
[2021-10-10 11:56] LABS: Source Nasal/Nares
[2021-10-10 16:19] LABS: COVID-19 PCR Negative (Negative)
== END 2021-10-10 04:01 | disposition home or self-care (01) ==
LOC: LBO 04:00
PROVIDERS: Physician Assistant; PCP Family Medicine; Visit Provider Student in an Organized Health Care Education/Training Program
DX: M25.561 Pain in right knee (principal); M17.11 Unilateral primary osteoarthritis, right knee; R73.03 Prediabetes; Z20.822 Contact with and (suspected) exposure to COVID-19; Z01.818 Encounter for other preprocedural examination; Z01.812 Encounter for preprocedural laboratory examination
CPT/HCPCS: 36415; 80048; 85027; 87635; 83036

== ENCOUNTER 2021-10-11 09:54 | Day surgery (SDC) | payer BC, SELFPAY ==
[2021-10-11] VITALS (10 sets, daily range): BP systolic 108–149; BP diastolic 51–97; PULSE 59–76; RESP 12–20; TEMP 35.6–36.6; O2SAT 97–100; BMI 35.7
--- NOTE | 2021-10-11 07:42 | W.PM.DS.N ---
DS: Diagnosis Discharge Diagnosis (1) Osteoarthritis of right knee: Status: Chronic Discharge Plan Disposition Patient Disposition: HOME Condition: Good Discharge Details Reason For Visit: Right knee DJD Attending Provider: Guillermo Vidal Primary Care Provider: Jenn Escobar Home Meds and New Rx's Prescriptions: New acetaminophen 500 mg tablet 1,000 mg PO Q8H PRN Qty: 90 0RF Rx Instructions: Take two tablets up to every 8 hours as needed for pain celecoxib [Celebrex] 200 mg capsule 200 mg PO BID Qty: 30 0RF docusate sodium [Colace] 100 mg capsule 100 mg PO BID Qty: 30 0RF pantoprazole 40 mg tablet,delayed release (DR/EC) 40 mg PO DAILY 14 Days Qty: 14 0RF gabapentin 300 mg capsule 300 mg PO QHS Qty: 14 0RF Rx Instructions: Take one tablet at bedtime oxycodone 5 mg tablet 5 mg PO Q4H PRN (Reason: severe post-operative pain) Qty: 18 0RF Rx Instructions: Take one tablet up to every 4 hours as needed for severe pain Continued thyroid (pork) [Christmas Thyroid] 60 mg tablet 60 mg PO DAILY Eliquis 5 mg tablet 2.5 mg PO BID vitamin D15-hyxwg acid 500-400 mcg tablet 1 tab PO DAILY Rx Instructions: administer with a meal berberine-herbal comb no.18 Capsule 1 cap PO TID Label Comments: pt reports dose is 500mg TID bromelains 500 mg tablet 750 mg PO TID whey protein conc-amino acid 24 gram-120 kcal/30 gram powder PO ascorbic acid (vitamin C) 1,000 mg tablet 2 g PO DAILY red yeast rice 600 mg capsule 600 mg PO BID Rx Instructions: give with meal/snack cholecalciferol (vitamin D3) 5,000 UNIT tablet 5,000 unit PO DAILY Niacin [Plain Niacin] 250 MG tablet 500 mg PO TID Vitamin A-Mulsion 3,000 mcg PO DAILY Discontinued acetaminophen [Tylenol Extra Strength] 500 mg tablet 500 mg PO Q6H PRN naproxen sodium [Aleve] 220 mg tablet 220 mg PO BID PRN Discharge Instructions Additional Instructions: Total Knee Discharge Instructions Activity: The most important activity is to walk. You should try to take short walks a few times a day. It is important that when resting you work on keeping the knee straight. Avoid putting a pillow behind the knee as this will encourage flexion. Work on range of motion exercises as provided by Physical Therapy. If you have the [employer] bike coming, this will be your primary tool for exercise after the knee replacement. You should use it and follow the directions for the knee. Utilize the other exercises sparingly based on your symptoms. - Start outpatient physical therapy within 2 weeks. - You should wear the NEVILLE hose on both legs for 2 weeks. You may remove these at night. You may also use any compression sock in place of the NEVILLE hose. - Utilize [employer] to review exercises, see videos on exercises and obtain basic information pertaining to your surgery and your recovery. Dressing: Remove the Carlos wrap by 2 days after your surgery and put on the NEVILLE stocking given to you from the hospital. Keep the surgical dressing (underneath the CARLOS wrap) in place for at least one week. After the first week it may be removed and replaced with light gauze and tape or nothing. The wound and dressing may get wet after 3 days but avoid soaking the dressing or otherwise it will need to be changed. Many people prefer covering the dressing with cling wrap (saran wrap) to minimize it from getting soaked. If it gets wet, just pat dry. If it starts to peel off then it will need to be changed. Medications: - You should take Tylenol and anti-inflammatory Celebrex as your primary pain control medications. If the Celebrex is too expensive or not covered, please call the office for another alternative (Advil/Ibuprofen or Naproxen/Aleve) - You have been prescribed a stronger pain medication Oxycodone for breakthrough pain, take as needed as prescribed. - You have also been prescribed a stomach acid reduction agent Pantoprozole to help reduce stomach acid and reflux. - You have been prescribed Gabapentin to take at night for restlessness and nerve pain. - You will be taking your baseline prescription of Apixaban for DVT prevention. - If you have constipation you should take Colace (which has been prescribed) or Miralax (which is available [id number]). It takes most people 3-4 days to have a bowel movement. Follow-up: 2 weeks If you have any acute concerns or questions, please do not hesitate to contact the office at [phone]. You may contact Dr. Vidal with any questions after hours through the hospital at [phone] or on his cell phone at [phone]. Stand Alone Forms: Anesthesia Discharge InstAnes. CyrusNerve Block Instructions, James Bhagat (DSU) Referrals: Guillermo Vidal MD [ [facility] STAFF PHYSICIAN] - 10/24/21 9:00 am Equipment/Supplies: Walker Activity:: Elevate Remove Dressings/Wound Care:: Do Not Remove Shower/Bathe:: Cover Diet:: As Tolerated Discharge Orders Discharge Orders: Discharge Order (Routine); Ordered 10/11/21 Ordered By: Guillermo Vidal Discharge Data Discharge Date/Time-TO BE ENTERED AT DEPARTURE: 10/11/21 16:45 DS: Summary Time Spent with Patient providing and/or coordinating discharge services: Less than 30 minutes Status at Discharge Functional status at discharge: uses cane/walker Overall status at discharge: patient is progressing back to baseline Mental Status: mental status grossly normal Speech and Movement: speech and movement normal Mood: congruent mood Affect: normal affect Exam Psych Mental Status: mental status grossly normal Speech and Movement: speech and movement normal Mood: congruent mood Affect: normal affect DS: Data Vitals/I&O Vitals and I&O: Intake & Output 10/10/21 10/10/21 10/11/21 11:59 23:59 11:59 Weight 209 lb 15.986 oz PFSH All Active Problems (Updated 10/11/21 @ 10:31 by Frannie Hendrickson) Elevated lipids (Acute 08/10/17) on supplements Acquired hypothyroidism (Acute 08/10/17) Hx pulmonary embolism (Acute) and DVT X2 episodes 2020 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) Osteoarthritis of right knee (Chronic) Prediabetes (Acute) reports jump from 5.8 to 6.8 H in July 2021 Medical History (Updated 10/11/21 @ 10:31 by Frannie Hendrickson) Cardiac murmur reports her naturopathic doctor stated she had a flutter or heart murmur reports it has been mentioned by this provider twice over the past several years Hx of deep venous thrombosis after a fall in 2019 - DVT following considered unprovoked Lymphedema wears compression stockings and sees PT Venous (peripheral) insufficiency lower extremeties Surgical History (Updated 10/11/21 @ 10:31 by Frannie Hendrickson) Hx of colonoscopy Tonsillectomy and adenoidectomy [place] teeth extracted History of additional teeth removed when had braces in her teens Family History Mother Hyperlipidemia COPD (chronic obstructive pulmonary disease) 85 Father Myocardial infarction Social History Smoking/Tobacco Use Status: Never Smoking risk assessment performed?: Yes Alcohol Intake: current Alcohol Intake frequency: a few times a month Drug use: Never Substance use type: does not use Current gender identity: female Do you feel safe at home: Yes Do you feel safe in your relationship?: Yes
[2021-10-11] MEDS: Gabapentin 300 MG CAP PO (10:54)
[2021-10-11] MEDS: Celecoxib 200 MG CAP 400 MG PO (10:54)
[2021-10-11] MEDS: Acetaminophen 500 MG TAB 1000 MG PO (10:54)
[2021-10-11] MEDS: Lactated Ringers 1,000 ML 80 ML IV (11:20)
--- NOTE | 2021-10-11 11:32 | ANES.PREOP_ITS ---
General Info Date of Service Date Performed: 10/11/21 Height: 5 ft 4 in Weight: 94.4 kg Body Mass Index (BMI): 35.7 Surgical Procedure: Operation Date: 10/11/21 13:10 Proposed Procedure Side Surgeon p Knee Total Arthroplasty Cementless CR Right Guillermo Vidal MD Meds Allergies and Home Medications Allergies Allergy/AdvReac Type Severity Reaction Status Date / Time No Known Drug Allergies Allergy Verified 10/11/21 10:31 Home Medication Medication Instructions Recorded cholecalciferol (vitamin D3) 125 5,000 unit PO DAILY 03/02/14 mcg (5,000 unit) tablet thyroid (pork) 60 mg tablet 60 mg PO DAILY 04/12/20 ([place] Thyroid) Niacin [Plain Niacin] 500 mg PO TID 11/19/20 apixaban 5 mg tablet (Eliquis) 2.5 mg PO BID 11/19/20 red yeast rice 600 mg capsule 600 mg PO BID 05/30/21 vitamin B12 500 mcg-folic acid 400 1 tab PO DAILY 09/05/21 mcg tablet acetaminophen 500 mg tablet 500 mg PO Q6H PRN 10/04/21 (Tylenol Extra Strength) ascorbic acid (vitamin C) 1,000 mg 2 g PO DAILY 10/04/21 tablet berberine-herbal comb no.18 capsule 1 cap PO TID 10/04/21 bromelains 500 mg tablet 750 mg PO TID 10/04/21 naproxen sodium 220 mg tablet 220 mg PO BID PRN 10/04/21 (Aleve) whey protein conc-amino acids 24 pwd PO 10/04/21 gram-120 kcal/30 gram oral powder Vitamin A-Mulsion 3,000 mcg PO DAILY 10/10/21 Current Visit Medications: Current Medications Generic Name Dose Route Start Last Admin Trade Name Freq PRN Reason Stop Dose Admin Acetaminophen 1,000 mg 10/11/21 06:00 10/11/21 10:54 Acetaminophen 500 Mg Tab PO 10/11/21 16:00 1,000 mg PREOP JEZ Administration Acetaminophen 1,000 mg 10/11/21 14:00 Acetaminophen 500 Mg Tab PO TID JEZ Celecoxib 400 mg 10/11/21 06:00 10/11/21 10:54 Celecoxib 200 Mg Cap PO 10/11/21 16:00 400 mg PREOP JEZ Administration Celecoxib 200 mg 10/11/21 20:00 Celecoxib 200 Mg Cap PO BID JEZ Docusate Sodium 100 mg 10/11/21 07:40 Docusate Sodium 100 Mg Cap PO BID PRN PRN Constipation Gabapentin 300 mg 10/11/21 06:00 10/11/21 10:54 Gabapentin 300 Mg Cap PO 10/11/21 16:00 300 mg PREOP JEZ Administration Gabapentin 300 mg 10/11/21 22:00 Gabapentin 300 Mg Cap PO HS JEZ Hydromorphone HCl 0.5 mg 10/11/21 07:40 Hydromorphone 2 Mg/Ml Vial IVP Q2H PRN PRN Tranexamic Acid 1,000 mg/ 60 mls @ 360 mls/hr 10/11/21 06:00 Sodium Chloride IVPB 10/11/21 16:00 PREOP JEZ Tranexamic Acid 1,000 mg/ 60 mls @ 360 mls/hr 10/11/21 06:00 Sodium Chloride IVPB 10/11/21 16:00 DIRECTED [facility] Ringer's Solution 1,000 mls @ 80 mls/hr 10/11/21 06:00 10/11/21 11:20 IV 11/09/21 23:59 80 mls/hr INFUSION JEZ Administration Cefazolin Sodium/Dextrose 2 gm in 50 mls @ 100 mls/hr 10/11/21 06:00 Ancef Duplex IVPB 10/11/21 16:00 PREOP JEZ Cefazolin Sodium/Dextrose 1 gm in 50 mls @ 100 mls/hr 10/11/21 08:00 Ancef Duplex IVPB 10/12/21 00:29 Q8H [facility] IV Miscellaneous Supplies 1 each 10/11/21 06:00 Iv Access IV 11/09/21 23:59 DIRECTED [facility] Ondansetron HCl 4 mg 10/11/21 07:40 Ondansetron 4 Mg/2 Ml Vial IVP Q6H PRN PRN Nausea Oxycodone HCl 0 mg 10/11/21 07:40 Oxycodone 5 Mg Tab PO Q3H PRN PRN Pain Pantoprazole Sodium 40 mg 10/12/21 07:30 Pantoprazole 40 Mg Tabcr PO DAILY@0730 JEZ Polyethylene Glycol 17 gm 10/11/21 07:40 Polyethylene Glycol 3350 17 Gm Packet PO BID PRN PRN Constipation Sodium Chloride 0 ml 10/11/21 06:00 Normal Saline Flush 10 Ml Syr IV 11/09/21 23:59 PRN PRN Sodium Chloride 0 ml 10/11/21 06:00 Normal Saline 10 Ml Vial IJ 11/09/21 23:59 DIRECTED PRN Sterile Water 0 ml 10/11/21 06:00 Water,Injection,Sterile 10 Ml Vial IJ 11/09/21 23:59 DIRECTED PRN PFSH Active Problems Active Problems: Problem Status Onset Code Elevated lipids 08/10/17 E78.5 Acquired hypothyroidism 08/10/17 E03.9 Hx pulmonary embolism Z86.711 Mallet deformity of right little finger M20.011 Osteoarthritis of right knee M17.11 Prediabetes R73.03 Medical History Medical History (Updated 10/11/21 @ 10:31 by Frannie Hendrickson) Cardiac murmur reports her naturopathic doctor stated she had a flutter or heart murmur reports it has been mentioned by this provider twice over the past several years Hx of deep venous thrombosis after a fall in 2019 - DVT following considered unprovoked Lymphedema wears compression stockings and sees PT Venous (peripheral) insufficiency lower extremeties Surgical History Surgical History (Updated 10/11/21 @ 10:31 by Frannie Hendrickson) Hx of colonoscopy Tonsillectomy and adenoidectomy [place] teeth extracted History of additional teeth removed when had braces in her teens Tobacco Smoking/Tobacco Use Status: Never Alcohol Alcohol Intake: current Alcohol intake frequency: a few times a month Substance Use Substance use: Never Substance use type: does not use Vital Signs and Lab Results Vital Signs Most Recent Vital Signs in EMR: Most Recent Vital Signs Temp Pulse Resp BP Pulse Ox 36.6 C 74 16 128/83 97 10/11/21 10:49 10/11/21 10:49 10/11/21 10:49 10/11/21 10:49 10/11/21 10:49 Lab Results Blood Type / Crossmatch: No Data to Display Complete Blood Count: White Blood Count 5.77 10^3/uL (4.4-10.8) 10/10/21 08:05 Red Blood Count 3.89 10^6/uL (3.93-5.22) L 10/10/21 08:05 Hemoglobin 11.0 g/dL (11.2-15.7) L 10/10/21 08:05 Hematocrit 33.6 % (36.0-46.0) L 10/10/21 08:05 Platelet Count 343 10^3/uL (130-400) 10/10/21 08:05 Complete Metabolic Panel: Sodium Level 138 mmol/L (136-145) 10/10/21 08:05 Potassium Level 4.0 mmol/L (3.5-5.1) 10/10/21 08:05 Chloride Level 104 mmol/L (98-107) 10/10/21 08:05 Carbon Dioxide Level 24.8 mmol/L (21.0-32.0) 10/10/21 08:05 Blood Urea Nitrogen 16 mg/dL (7-18) 10/10/21 08:05 Creatinine 0.8 mg/dL (0.55-1.02) 10/10/21 08:05 Estimated GFR/1.73 m2 >= 60.00 (mL/min/1.73m2) 10/10/21 08:05 Calcium Level 8.7 mg/dL (8.5-10.1) 10/10/21 08:05 Glucose Level 96 mg/dL (74-106) 10/10/21 08:05 Hemoglobin A1c 6.0 % (<5.7) H 10/10/21 08:05 Liver Function Panel: No Data to Display Coagulation Panel: No Data to Display Cardiac Panel: No Data to Display Arterial Blood Gas: No Data to Display Venous Blood Gas: No Data to Display Pancreas Panel: No Data to Display Thyroid Panel: No Data to Display Infectious Disease: Coronavirus (COVID-19)(PCR) Negative (Negative) 10/10/21 08:15 Coronavirus 2019 Source Nasal/Nares 10/10/21 08:15 Blood Cultures: No Data to Display Toxicology Panel: No Data to Display Anesthesia Assessment and Plan Anesthesia History Personal History: No History of Anesthesia Complications Family History: No Family History of Anesthesia Complications Exercise Tolerance Exercise Tolerance: Metabolic Equivalents>4 Pertinent Negatives Pertinent Negatives: No Symptoms of GERD, No Major Cardiovascular Symptoms or Complaints, No Major Pulmonary Symptoms or Complaints and No History of CVA/TIA Cardiac & Pulmonary Exam Cardiac Exam: Normal S1/S2 Heart Sounds Pulmonary Exam: Clear Bilateral Breath Sounds Implantable Cardiac Device Does patient have a Pacemaker or an ICD?: No Airway Exam Known Difficult Airway: No Mallampati Class: 1 Mouth Opening: Normal (> 3cm) Thyromental Distance: Greater than 3 cm Neck Range of Motion: Full ROM Neck Circumference: Normal Teeth Condition: Normal Dentition ASA Classification ASA Score: ASA 2 Emergency Case?: No NPO Status NPO Status: NPO Clears >2 hours, Solids >8 hours Anesthesia Plan Resuscitation Status: Full Code Anesthesia Technique: Spinal Anesthesia Airway Planned: Natural Airway Monitors Used: Standard Monitors
[2021-10-11] MEDS: ceFAZolin 2 GM/50 ML BAG IVPB (12:06)
--- NOTE | 2021-10-11 12:36 | W.ANESNERVE ---
Nerve Block Single Injection Procedure Date and Time Date Performed: 10/11/21 Procedure Start: 11:50 Location Where Procedure Performed Procedure Location: Day Surgery Unit (219) Reason Performed: Postoperative Analgesia Requesting Provider: Guillermo Vidal Timeout Performed Timeout Performed: Yes Monitoring Used ECG, Blood Pressure and SpO2 Sterility Sterility: Hand Hygiene, Surgical Cap, Surgical Mask, Sterile Gloves, Eye Protection and Chlorhexidine Sedation Given During Procedure Sedation Given (Indicate Dose Given): No Sedation given Patient Mental Status Patient Mental Status: Awake Nerve Block 1st Nerve Block: Laterality: Right Block Type: Adductor Canal (right) Needle / Catheter Used: 100mm SonoPlex II Local Anesthetic Bolus (Indicate Dose Given): Lidocaine used for local infiltration of skin, Injected in 3-5ml increments after negative blood aspiration and Bupivacaine 0.25% Dose:: 20cc Additives (Indicate Dose Given): None Ultrasound: Sterile probe cover and gel used Ultrasound Image Saved?: Yes Nerve Stimulator: Not Used Paresthesia: None Post Procedure Pain score (0-10): 0 Procedure Tolerated: No Complications and Patient tolerated well Procedure Outcome: Successful Performed By: Oral Valladares
[2021-10-11] MEDS: fentaNYL 100 MCG/2 ML VIAL IVP ×2 (14:10→14:20)
[2021-10-11] MEDS: oxyCODONE 5 MG TAB PO (15:09)
--- NOTE | 2021-10-11 15:20 | W.ANESPOSTOP ---
Postoperative Evaluation Date, Time and Location Date Performed: 10/11/21 Time Performed: 15:20 Patient Location: Day Surgery Unit Vital Signs Most Recent Imported Vital Signs: Most Recent Vital Signs Temp Pulse Resp BP Pulse Ox 36.4 C L 63 16 137/88 100 10/11/21 14:35 10/11/21 14:35 10/11/21 14:35 10/11/21 14:35 10/11/21 14:35 Pain Score Most Recent Pain Score: Most Recent Pain Score Pain Level 4 10/11/21 14:35 Assessment Mental Status: Awake (Alert & Oriented to Patient Baseline) Airway and Respiratory Function: Patent airway with normal (patient baseline) respiratory exam Cardiovascular Function: Hemodynamically Stable Hydration Status: Adequately Hydrated Nausea & Vomiting: No Nausea or Vomiting Pain: Pt. Denies Any Pain Peripheral Nerve Block: Patient did not receive a nerve block
--- NOTE | 2021-10-11 16:40 | PT.INIE ---
Date of service: 10/11/21 Time of Service: 16:39 PT Notes Visit Reasons: Right knee DJD Date: 10/11/2021 Referring: Guillermo Vidal MD MD diagnosis: Status post right TKA PT diagnosis: Status post right TKA Treatment time: 30 minutes Treatment: 20212 Subjective: Patient initially complained of lightheadedness but this resolved once she ambulated. She also noted some mild discomfort throughout the anterior lateral aspect of the right tibia and the posterior lateral aspect of the knee with weightbearing. Objective: 66-year-old female with osteoarthritis of the right knee status post right TKA earlier today. Other problems include lymphedema Functional mobility: Independent with assuming the supine to sitting to standing positions without nausea or vagal reaction. Pulse was regular at 60 bpm. Gait: She ambulated with a wheeled walker weightbearing as tolerated on the right lower extremity with minimal contact guarding, initially to the bathroom, and then approximately 100 feet. She descended and descended 3 steps with railing using proper technique and had good stability. Articular: Her hip and ankle motion are nonirritable. Her right knee motion is -10 to 100 degrees and nonpainful. She has a minimal extension lag Neuro: Intact Assessment: Tolerated upright position well with a stable gait Plan: The session consisted of gait training with a walker, weightbearing as tolerated along with instructing in ascending and descending stairs. She was also instructed in home program consisting of quad and gluteal sets and ankle pumping which is part of her [employer] program. She is a follow-up appointment with Dr. Vidal in 2 weeks. Disclaimer: This note was created using [employer] voice recognition software. It was reviewed for major content. However, there may be multiple small discrepancies and errors due to the voice recognition aspects of the software.
--- NOTE | 2021-10-11 19:19 | ROE_ITS ---
Date of service: 10/11/21 Time of Service: 13:55 Operative Note Operative Note DATE OF PROCEDURE: 10/11/21 PRE-OP DIAGNOSIS: Right Knee Osteoarthritis POST-OP DIAGNOSIS: same PROCEDURE: Right Total Knee Replacement SURGEON: Guillermo Vidal CREATIVE WRITING TEACHER: Thelma Jaimes ANESTHESIA TYPE: Spinal Refer to Anesthesia Record ESTIMATED BLOOD LOSS: 100 PATHOLOGY: none sent TOURNIQUET TIME: 0 COMPLICATIONS: None Patient was transported to: PACU Patient's condition: stable Implants: 1. Depuy Attune Cementless Cruciate Retaining Femoral Component, Size 5 2. Depuy Attune Cementless Rotating Platform Tibial Component, Size 5 3. Depuy Attune 5x10 CR/RP Poly 4. Depuy Attune Patellar Component, Size 35 Indications: I have seen Roseanna in clinic for symptoms of knee arthritis, confirmed with radiographic findings. She has exhausted nonoperative methods and was having significant limitations in daily function and desired better function and less pain. I discussed the technical details of a knee replacement. I explained the risks of the procedure to include, but not limited to, bleeding, infection, pain, stiffness, fracture, damage to nerves and vessels, damage to muscles and tendons, loosening, need for repeat procedure, blood clot and cardiopulmonary demise. Despite these risks, Roseanna elected to proceed. Findings: There was significant signs of arthritis throughout the knee throughout all 3 compartment but concentrated in the medial side. Procedure Description: Roseanna was greeted in the preoperative holding area where the correct side was identified and marked. The consent was reviewed with the patient and signed. The history and physical was updated. All questions were answered. Preoperative medications were administered: Acetaminophen 1000mg, Celebrex 400mg, and Gabapentin 300mg. An adductor canal block was then administered by the anesthesia team in the PACU. Roseanna was taken back to the operating room. A spinal anesthestic was then administered. The patient was placed into the supine position on the operating room table. A nonsterile tourniquet was placed high onto the leg but only used for cementing. Posts were placed for positioning during the procedure. All bony prominences were well padded. Prophylactic antibiotics in the form of Cefazolin were administered. 1g of Tranxemic Acid was given intravenously within 30 minutes of incision. The right leg was then prepped with Chloraprep and draped in a standard fashion with impervious stockinette. A second prep with Chloraprep was performed prior to application of Iodine impregnated skin protection. A timeout to confirm correct identity, side and site, procedure, allergies, anesthesia, and medical concerns was performed. With the knee in some flexion, a midline incision was made overlying the knee. Full thickness skin flaps were raised once the extensor mechanism was encountered. These were raised medially and laterally. Any bleeding was controlled with electrocautery. Once the extensor mechanism was fully exposed, a medial parapatellar arthrotomy was performed in a flexed position. All bleeding from the arthrotomy and the geniculate arteries was coagulated. A medial subperiosteal peel was performed with electrocautery to the midcoronal plane. Due to the significant varus deformity the entire medial tibial plateau was exposed. The fat pad was removed while keeping the patellar tendon protected. The anterior distal femur synovium was removed for later visualization. The ACL and PCL were resected and the anterior horn of the lateral meniscus was transected. The knee was then flexed with the patella everted. Large osteophytes from the tibia were removed. Large osteophytes from the femur were removed. Using a step drill, and based on preoperative templating, the femoral canal was entered. This was done with a step drill without any difficulty. The intramedullary distal femoral cut guide was inserted, set to a 5 degree valgus cut and 9mm cut thickness. The distal femoral cut guide was then held in position and pinned. With the soft tissues protected, the distal cut was performed. This was passed over a few times to ensure a planar cut. I then turned attention to the tibia. The extramedullary guide was placed onto the leg. The distal aspect was slid medial to adjust for position of center of ankle and stay in line with shaft of the tibia. Approximately 3-5 degrees of posterior slope was kept in the proximal cutting guide. The center of the guide was aligned with the PCL. The stylus was used to assess cut thickness. The medial side, most involved side, was set for a 2mm cut. This was then held in position and pinned into place with 2 additional pins and a cross pin for stability. The medial and lateral collateral ligaments were protected and the cut was performed. With this completed, it was assessed and noted to be of appropriate dimensions. The guide was removed. A spacer block was inserted and the knee was brought into extension. The 8mm spacer block provided full extension, without hyperextension and with stability of both the medial and lateral collateral ligaments was ass essed. The pins from the femur and the tibia were then removed. The distal femur was then sized. The anterior stylus was placed onto the lateral ridge of the anterior femur. This indicated a size 5 femur. The external rotation of the guide was adjusted to 3 degrees to match the epicondylar axis, perpendicular to Luis?s line. The 4-in-1 cutting guide was the placed. The posterior medial femur cut was evaluated and appeared of good thickness. The spacer block was inserted underneath the cutting guide and stability was confirmed in 90 degrees of flexion. An ada wing was used to co nfirm appropriate position of the anterior cut to avoid notching. This cutting guide was ensured to be flush on the cut surface and then pinned into place with headed pins. While protecting the soft tissues, quad tendon, and collateral ligaments, the anterior and posterior cuts were performed with a saw. The central two pins were removed and the posterior and anterior chamfers were cut next. The notch-cutting guide was placed. This was pinned to lateralize the femoral component as much as possible while keeping it flush on the cut surface. This was then pinned into position. A reciprocating saw was used to make the notch cut. A rasp smoothed the cut surfaces. The medial and lateral menisci were removed. Large posterior osteophytes were removed, mostly from the medial side of the knee, using a curved osteotome. A trial femoral component was then inserted, impacted down to the cut surfaces, and the lug holes were drilled. A provisional trial tibial component was placed and the knee was brought through range of motion. The polyethylene was trialed until there was good flexion and extension with excellent stability to the medial and lateral collaterals. The patella was tracking without thumbs. A size 10mm polyethylene component provided the best range of motion and stability with less than 2mm gapping with medial and lateral stress and full extension without significant hyperextension. The tibial cut surface was fully exposed. The tibia was then sized as a 5. The tibia had been previously marked during trialing to correspond to the center of the tibial component to help with rotation. The trial was aligned to this guera, approximately rotated to the medial 1/3rd of the tibial tubercle. The trial was pinned into place. The tibia was prepared with a reamer and a keel punch and lug holes. The knee was then brought into extension and the patella was measured as 24mm. Using the patellar clamp and cut guide, this was resected to a flat surface with at least 13mm of thickness remaining. The size 35 patella fit the best. This was oriented and then clamped into position. The lugs were drilled. The trial components were removed. The final components were opened on the back table. The periosteal and capsular tissues, especially posteriorly, around the knee were then systematically injected with a periarticular cocktail consisting of 246mg of Ropivacaine, 0.5mg of Epinephrine, 0.08mg of Clonidine, and 30mg of Ketorolac, diluted to 100cc. On the back table, with the implants opened, the cement was mixed. One batch of high viscosity cement was prepared with vacuum assistance. After the cement was ready a small amount was placed on the cut surface of the patella and the patellar button was clamped into position and held. While the cement was hardening, the cementless knee components were placed. Starting with the tibial component, the tibia was subluxed anteriorly and the lug holes of the component were lined up. The tibia was then impacted with an impactor and mallet until the tibial component was in contact with the tibia. The final polyethylene component was inserted. Then, the femoral component was inserted. The lug holes were aligned and the component was impacted into position. The knee was irrigated with Surgiphor Betadine solution. This was allowed to sit in the knee for 3 minutes and then it was irrigated out with saline. After the cement had finally cured, approximately 15min, the clamp was removed from the patella and the knee was taken through range of motion. The patella was tracking with a no-thumbs technique. The capsule was then reapproximated with a No. 1 Vicryl at multiple locations. The capsule was finally closed with a No. 2 Stratafix, barbed suture. The second dosing of 1g TXA was started. Deep tissues were then reapproximated with 0 Vicryl and 2-0 Vicryl. The skin was closed with a running 3-0 Monocryl in a subcuticular fashion. This was reinforced with skin glue. A Mepilex silver dressing was applied along with a [id number] STACIA wrap. A CryoCuff was applied. Roseanna was transferred to the hospital bed without difficulty an suffering no apparent complication. Roseanna has a good prognosis. Physical therapy will start today and without restrictions, weight-bearing as tolerated. Aspirin 81mg BID will be used for DVT prophylaxis.
== END 2021-10-11 16:45 | disposition home or self-care (01) ==
PROVIDERS: PCP Family Medicine; Visit Provider Student in an Organized Health Care Education/Training Program
PROC: (CPT 27447; principal; 2021-10-11 13:00)
DX: M17.11 Unilateral primary osteoarthritis, right knee (principal); E78.5 Hyperlipidemia, unspecified; E03.9 Hypothyroidism, unspecified; Z86.711 Personal history of pulmonary embolism; R73.03 Prediabetes
CPT/HCPCS: 27447; 76942; 97162; J0690; J1100; J2250; J2370; J2405; J3010

== ENCOUNTER 2021-10-24 11:45 | Outpatient (CLI) | payer BC, SELFPAY ==
--- NOTE | 2021-10-24 08:45 | DI.RAD_ITS ---
Exam(s) XR KNEE RT 1V EXAM: XR KNEE RT 1V CLINICAL HISTORY: 1ST POST OP R TKA. TECHNIQUE: 2D digital imaging was performed. COMPARISON: CR XR KNEE RT 1V from 05/30/2021 FINDINGS: Single lateral view of the right knee Components of the recently placed prosthesis are in satisfactory position alignment. No fracture or loosening evident on this single view study. IMPRESSION: DATA REPOSITORY: RADIATION DOSE DELIVERED:
--- NOTE | 2021-10-24 08:45 | DI.RAD_ITS ---
Exam(s) XR STANDING ALIGNMENT EXAM: XR STANDING ALIGNMENT CLINICAL HISTORY: 1ST POST OP R TKA. TECHNIQUE: 2D digital imaging was performed. COMPARISON: Prior study 05/30/2021 FINDINGS: There has been interval placement of a right knee prosthesis. Components appear to be in satisfactor y position. Moderate narrowing of the medial compartment of the opposite-left knee noted, similar to previous. Hips appear relatively unremarkable as do the ankles. Bone density normal. No osseous l esions. Sacroiliac joints unremarkable. Multilevel degenerative disc disease noted. IMPRESSION: DATA REPOSITORY: RADIATION DOSE DELIVERED:
== END 2021-10-24 11:46 | disposition home or self-care (01) ==
LOC: DIORS 11:46
PROVIDERS: PCP Family Medicine; Referring Provider Family Medicine; Visit Provider Student in an Organized Health Care Education/Training Program
DX: Z96.651 Presence of right artificial knee joint (principal)
CPT/HCPCS: 73560; 77073

== ENCOUNTER 2022-07-26 01:59 | Outpatient (CLI) | payer OTHER, SELFPAY ==
[2022-07-26 08:42] LABS: HCT 38.8 % (36.0-46.0); HGB 12.4 g/dL (11.2-15.7); MCH 27.7 pg (27.0-33.0); MCV 87 fL (80-95); MPV 10.2 fL (8.0-11.0); Platelet Count 325 10^3/uL (130-400); RBC 4.48 10^6/uL (3.93-5.22); RDW 13.7 % (11.7-14.6); RDW-SD 43.2 fL; WBC 6.76 10^3/uL (4.4-10.8)
[2022-07-26 09:02] LABS: Hemoglobin A1C 5.9 % (<5.7)
[2022-07-26 09:33] LABS: Vitamin D 25 Total 34.3 ng/mL (30-100)
[2022-07-26 09:40] LABS: ALT 14 U/L (14-59); AST 18 U/L (15-37); Albumin 3.7 g/dL (3.4-5.0); Alkaline Phosphatase 175 U/L (46-116); Anion Gap 6.7 mmol/L (3-11); BUN 14 mg/dL (7-18); Bilirubin, Total 0.3 mg/dL (0.2-1.0); CO2 28.3 mmol/L (21.0-32.0); CREATININE 0.8 mg/dL (0.55-1.02); Calcium 8.9 mg/dL (8.5-10.1); Calculated LDL 200 mg/dL (<100); Chloride 106 mmol/L (98-107); Cholesterol 304 mg/dL (<200); Estimated GFR 80.71 (mL/min/1.73m2); Ferritin 24 ng/mL (8-252); Folate 14.1 ng/mL (8.6-20.0); Glucose 94 mg/dL (74-106); HDL Cholesterol 85 mg/dL (40-60); Potassium 4.5 mmol/L (3.5-5.1); Sodium 141 mmol/L (136-145); TSH (W/Ref FT4) 1.53 uIU/mL (0.36-3.74); Total Protein 7.4 g/dL (6.4-8.2); Triglyceride 99 mg/dL (<150); Vitamin B12 353 pg/mL (193-986)
== END 2022-07-26 02:00 | disposition home or self-care (01) ==
LOC: LBO 01:59
PROVIDERS: PCP Family Medicine; Visit Provider Family Medicine
DX: Z51.81 Encounter for therapeutic drug level monitoring (principal); I10 Essential (primary) hypertension; E78.5 Hyperlipidemia, unspecified; E03.9 Hypothyroidism, unspecified; M81.0 Age-related osteoporosis without current pathological fracture
CPT/HCPCS: 36415; 80053; 80061; 82306; 85027; 82607; 82728; 82746; 83036; 84443

== ENCOUNTER 2022-08-23 01:40 | Outpatient (CLI) | payer OTHER, SELFPAY ==
--- NOTE | 2022-08-23 | DI.MAMMO_ITS ---
Exam(s) MAMMO SCREENING EXAM: MAMMO SCREENING CLINICAL HISTORY: SCREENING, Z12.39 TECHNIQUE: Mammograms were interpreted according to the usual protocol including computer analysis w [employer] CAD system, tomosynthesis and C-view imaging. COMPARISON: 2013 through 2021 FINDINGS: The breasts are composed of mainly fatty density , Breast Density category A. No suspicious masses or suspicious microcalcifications are seen. No skin thickening or abnormal axillary lymph nodes are seen. There has been no significant change from prior exams. IMPRESSION: BI-RADS Category 1, Negative mammogram Yearly screening mammography is recommended. Breast Density - Category A, fatty density. A negative radiographic report should not delay biopsy if a dominant or clinically suspicious mass is present. Up to ten percent of cancers are not identified on mammography. A negative report may reinforce clinical impression. Adenosis and dense breasts may obscure an underlying neoplasm. False positive reports average 6 to 10%. Patient will receive a letter notifying them of these results.
== END 2022-08-23 02:00 ==
LOC: DI 01:40
PROVIDERS: PCP Family Medicine; Visit Provider Family Medicine
DX: Z12.31 Encounter for screening mammogram for malignant neoplasm of breast (principal)
CPT/HCPCS: 77063; 77067

== ENCOUNTER 2022-09-08 01:07 | Outpatient (CLI) | payer OTHER, SELFPAY ==
[2022-09-08 13:06] LABS: ALT 10 U/L (14-59); Calculated LDL 113 mg/dL (<100); Cholesterol 205 mg/dL (<200); HDL Cholesterol 75 mg/dL (40-60); Triglyceride 87 mg/dL (<150)
[2022-09-11 11:05] LABS: Varicella IgG Antibody Negative (See Note)
== END 2022-09-08 01:08 | disposition home or self-care (01) ==
LOC: LOS 01:09
PROVIDERS: PCP Family Medicine; Visit Provider Family Medicine
DX: Z00.00 Encounter for general adult medical examination without abnormal findings (principal); E78.5 Hyperlipidemia, unspecified; Z11.59 Encounter for screening for other viral diseases; Z01.84 Encounter for antibody response examination
CPT/HCPCS: 36415; 80061; 86787; 84460

== ENCOUNTER 2022-09-26 03:53 | Outpatient (CLI) | payer OTHER, SELFPAY ==
[2022-09-26 10:45] LABS: ALT 13 U/L (14-59); AST 21 U/L (15-37); Albumin 3.7 g/dL (3.4-5.0); Alkaline Phosphatase 164 U/L (46-116); Anion Gap 10.4 mmol/L (3-11); BUN 11 mg/dL (7-18); Bilirubin, Total 0.4 mg/dL (0.2-1.0); CO2 27.6 mmol/L (21.0-32.0); CREATININE 0.9 mg/dL (0.55-1.02); Calcium 8.9 mg/dL (8.5-10.1); Chloride 105 mmol/L (98-107); Estimated GFR 70.07 (mL/min/1.73m2); Glucose 92 mg/dL (74-106); PHOSPHORUS 4.5 mg/dL (2.6-4.7); Potassium 4.1 mmol/L (3.5-5.1); Sodium 143 mmol/L (136-145); Total Protein 7.2 g/dL (6.4-8.2)
[2022-09-27 08:49] LABS: Parathyroid Hormone,Intact 117 pg/mL (19-88)
[2022-09-28 11:36] LABS: Beta-CrossLaps (B-CTx) 901 pg/mL
== END 2022-09-26 03:54 | disposition home or self-care (01) ==
LOC: LBO 03:53
PROVIDERS: PCP Family Medicine; Visit Provider Internal Medicine Endocrinology, Diabetes & Metabolism
DX: R74.8 Abnormal levels of other serum enzymes (principal)
CPT/HCPCS: 36415; 80053; 82306; 82523; 83970; 84100; 84681

== ENCOUNTER 2022-10-25 01:51 | Outpatient (CLI) | payer OTHER, SELFPAY ==
--- NOTE | 2022-10-25 10:15 | DI.NM_ITS ---
Exam(s) NM BONE SCAN WHOLE BODY GRP EXAM: NM BONE SCAN WHOLE BODY GRP CLINICAL HISTORY: SERUM ALKALINE PHOS RAISED, R74.8, ABNL LEVELS OTHER SERUM. TECHNIQUE: Injected Dose: 25 mCi Tc-99m MDP Delayed Images: 2-3 hours. COMPARISON: CR XR KNEE 4 VIEW LEFT, XR KNEE 4 VIEW RIGHT from 07/31/[address] CHEST PE CTA from 11/13/2019 CR XR DEXA BONE DENSITY W/WO SRAVAN from 08/12/2021 CR XR STANDING ALIGNMENT from 10/24/2021 CR XR KNEE RT 1V from 10/24/2021 FINDINGS: Symmetric axial uptake. Bilateral renal excretion is identified. There is increased radiotracer uptak e seen in the cervical spine. There is increased radiotracer uptake anteriorly in the calvarium. It appears to involve the frontal bones bilaterally. There is a photopenic area in the right knee cons istent with the patient's right total knee replacement. There are symmetric areas of increased radio tracer uptake in the shoulders and feet bilaterally likely degenerative in nature. There is increase d radiotracer uptake in the medial aspect of the left knee which is likely degenerative. There is in creased activity on the right in the region of the L5-S1 facet which is degenerative. IMPRESSION: 1. Areas of uptake seen bilaterally symmetrically likely reflecting degenerative changes. This inclu nery the shoulders, the knees and the feet. The patient has a right total knee replacement. 2. Symmetric increased radiotracer uptake in the frontal bones. No priors for comparison. A CT scan of the head or plain films of the calvarium should be obtained for further evaluation. 3. Increased activity seen in the cervical spine. This may be degenerative in nature. However, a ce rvical spine series should be obtained for comparison. Unexpected findings DATA REPOSITORY:
== END 2022-10-25 02:11 ==
LOC: DI 01:52
PROVIDERS: PCP Family Medicine; Visit Provider Internal Medicine Endocrinology, Diabetes & Metabolism
DX: R74.8 Abnormal levels of other serum enzymes (principal); Z96.651 Presence of right artificial knee joint; N28.89 Other specified disorders of kidney and ureter; M13.89 Other specified arthritis, multiple sites
CPT/HCPCS: 78306

== ENCOUNTER 2022-10-26 08:56 | Outpatient (CLI) | payer OTHER, SELFPAY ==
--- NOTE | 2022-10-26 08:30 | DI.RAD_ITS ---
Exam(s) XR KNEE RT 2V AP,LAT EXAM: XR KNEE RT 2V AP,LAT INDICATION: ANNUAL F/U S/P R TKA. COMPARISON: No exams were available for comparison TECHNIQUE: 2D digital imaging was performed. Two views. FINDINGS: There is been no change in the alignment of the total knee prosthesis. There are no suspicious surro unding bony lucencies. DATA REPOSITORY: RADIATION DOSE DELIVERED:
== END 2022-10-26 08:57 | disposition home or self-care (01) ==
LOC: DIORS 08:56
PROVIDERS: PCP Family Medicine; Referring Provider Family Medicine; Visit Provider Student in an Organized Health Care Education/Training Program
DX: Z96.651 Presence of right artificial knee joint (principal); Z47.1 Aftercare following joint replacement surgery
CPT/HCPCS: 73560

== ENCOUNTER 2022-11-01 12:39 | Outpatient (CLI) | payer OTHER, SELFPAY ==
--- NOTE | 2022-11-01 15:15 | DI.RAD_ITS ---
Exam(s) XR SKULL COMPLETE EXAM: XR SKULL COMPLETE CLINICAL HISTORY: CHRONIC MILD ELEVATED ALK PHOS, R74.8, SYMMETRIC UPTAKE IN SKULL ON BONE. TECHNIQUE: 2D digital imaging was performed. COMPARISON: [facility] BONE SCAN WHOLE BODY GRP from 10/25/2022 FINDINGS: No fracture or lytic lesion seen. There is hyperostosis frontalis interna, symmetric bilaterally, ac counting for the increased activity on bone scan. Degenerative changes are also noted in the C5-6 th rough C7-T1 levels, which would account for the uptake seen on bone scan. The sinuses appear clear as visualized. IMPRESSION: Hyperostosis frontalis interna. Degenerative changes of the lower cervical spine. DATA REPOSITORY: RADIATION DOSE DELIVERED:
== END 2022-11-01 12:59 ==
LOC: DI 12:50
PROVIDERS: PCP Family Medicine; Visit Provider Internal Medicine Endocrinology, Diabetes & Metabolism
DX: M85.2 Hyperostosis of skull (principal); M50.322 Other cervical disc degeneration at C5-C6 level; M50.323 Other cervical disc degeneration at C6-C7 level
CPT/HCPCS: 70260

== ENCOUNTER 2022-11-22 16:01 | Outpatient (REF) | payer OTHER, SELFPAY ==
--- NOTE | 2022-11-22 15:30 | PAPFT_PTH ---
PATIENT: Roseanna Olson LOC: [facility] U#:[id number] AGE/SX: 67/F ROOM: RE11/22/[address]: Judy Monge NP : [id number] BED: DIS: 11/22/2022 SPEC #: [id number] RECD: 11/22/22 17:53 STATUS: MORALES RECamryn #: [id number] DIONNE: 11/22/22 15:[address]: Judy Monge NP DEPT: [facility] Cytology RECD BY: Myesha Schultz ENTERED: 11/22/22 17:53 SP TYPE: PAPFT OTHR DR: Jenn Escobar Tissues: 1 - CX/ENDOCX FOR PAP SMEARS Procedures: PAP THIN PREP/UVM Screening HPV DNA PROBE Comments: [id number]
== END 2022-11-22 16:02 | disposition home or self-care (01) ==
LOC: LBN 16:01
PROVIDERS: PCP Family Medicine; Visit Provider Nurse Practitioner Women's Health
DX: Z11.51 Encounter for screening for human papillomavirus (HPV) (principal)
CPT/HCPCS: 88142; 87624

== ENCOUNTER 2022-12-29 02:47 | Outpatient (CLI) | payer OTHER, SELFPAY ==
[2022-12-29 08:56] LABS: HCT 37.2 % (36.0-46.0); MCH 28.2 pg (27.0-33.0); MCHC 32.3 % (32.0-36.0); MCV 87 fL (80-95); MPV 10.3 fL (8.0-11.0); Platelet Count 246 10^3/uL (130-400); RBC 4.26 10^6/uL (3.93-5.22); RDW 12.9 % (11.7-14.6); RDW-SD 41.6 fL; WBC 5.56 10^3/uL (4.4-10.8)
[2022-12-29 09:23] LABS: Hemoglobin A1C 5.8 % (<5.7)
[2022-12-29 09:28] LABS: Iron 68 ug/dL (50-170); Total Iron Binding Capacity 282 ug/dL (250-450); Transferrin Sat 24 % (15-50)
[2022-12-29 09:58] LABS: ALT 15 U/L (14-59); AST 20 U/L (15-37); Albumin 3.4 g/dL (3.4-5.0); Alkaline Phosphatase 149 U/L (46-116); Anion Gap 6.4 mmol/L (3-11); BUN 10 mg/dL (7-18); Bilirubin, Total 0.4 mg/dL (0.2-1.0); CO2 28.6 mmol/L (21.0-32.0); CREATININE 0.8 mg/dL (0.55-1.02); Calcium 8.7 mg/dL (8.5-10.1); Calculated LDL 80 mg/dL (<100); Chloride 104 mmol/L (98-107); Cholesterol 182 mg/dL (<200); Estimated GFR 80.71 (mL/min/1.73m2); Ferritin 35 ng/mL (8-252); Glucose 90 mg/dL (74-106); HDL Cholesterol 77 mg/dL (40-60); Potassium 4.3 mmol/L (3.5-5.1); Sodium 139 mmol/L (136-145); TSH 2.67 uIU/mL (0.36-3.74); Total Protein 6.7 g/dL (6.4-8.2); Triglyceride 125 mg/dL (<150); Vitamin B12 370 pg/mL (193-986)
[2022-12-29 10:15] LABS: FREE T4 0.95 ng/dL (0.76-1.46); PHOSPHORUS 4.2 mg/dL (2.6-4.7)
[2022-12-29 10:18] LABS: Vitamin D 25 Total 51.6 ng/mL (30-100)
[2022-12-29 18:19] LABS: Ionized Calcium 1.08 mmol/L (1.14-1.35)
[2023-01-01 09:10] LABS: Parathyroid Hormone,Intact 68 pg/mL (19-88)
[2023-01-02 13:11] LABS: Beta-CrossLaps (B-CTx) 972 pg/mL
[2023-01-03 13:41] LABS: 1,25-Dihydroxyvitamin D 42 pg/mL (18-78)
[2023-01-03 15:18] LABS: Pyridoxal 5-Phosphate (PLP), P 41 mcg/L (5-50)
== END 2022-12-29 02:48 | disposition home or self-care (01) ==
PROVIDERS: Internal Medicine Endocrinology, Diabetes & Metabolism; PCP Family Medicine; Visit Provider Family Medicine
DX: E03.9 Hypothyroidism, unspecified (principal); E21.0 Primary hyperparathyroidism
CPT/HCPCS: 36415; 80048; 80053; 80061; 82306; 82523; 85027; 82330; 82607; 82652; 82728; 83036; 83540; 83550; 83970; 84100; 84207; 84439; 84443; 84460

== ENCOUNTER 2022-12-29 12:59 | Outpatient (REF) | payer OTHER, SELFPAY ==
[2022-12-29 18:50] LABS: Creatinine,Urine 64.78 mg/dL
[2022-12-29 18:54] LABS: Creatinine,24hr Ur 0.45 g/24hr (0.60-1.80); Total Volume 700 ml
[2023-01-01 09:03] LABS: Calcium Urine 2.2 mg/dL (See Note); Calcium Urine 24 hr 15 mg/24hr (100-300); Timed Urine Volume 700 mL
== END 2022-12-29 13:00 | disposition home or self-care (01) ==
LOC: LBN 12:59
PROVIDERS: PCP Family Medicine; Visit Provider Internal Medicine Endocrinology, Diabetes & Metabolism
DX: E21.0 Primary hyperparathyroidism (principal)
CPT/HCPCS: 81050; 82340; 82570

== ENCOUNTER 2023-05-03 03:44 | Outpatient (CLI) | payer OTHER, SELFPAY ==
[2023-05-03 09:59] LABS: ALT 14 U/L (14-59); AST 24 U/L (15-37); Albumin 3.7 g/dL (3.4-5.0); Alkaline Phosphatase 130 U/L (46-116); Anion Gap 9.7 mmol/L (3-11); BUN 12 mg/dL (7-18); Bilirubin, Total 0.6 mg/dL (0.2-1.0); CO2 28.3 mmol/L (21.0-32.0); CREATININE 0.9 mg/dL (0.55-1.02); Calcium 9.2 mg/dL (8.5-10.1); Chloride 102 mmol/L (98-107); Estimated GFR 69.64 (mL/min/1.73m2); FREE T4 1.43 ng/dL (0.76-1.46); Glucose 98 mg/dL (74-106); PHOSPHORUS 4.2 mg/dL (2.6-4.7); Potassium 4.4 mmol/L (3.5-5.1); Sodium 140 mmol/L (136-145); TSH 1.58 uIU/mL (0.36-3.74); Total Protein 7.1 g/dL (6.4-8.2)
[2023-05-03 10:31] LABS: Vitamin D 25 Total 107.4 ng/mL (30-100)
[2023-05-03 19:30] LABS: Parathyroid Hormone,Intact 84 pg/mL (19-88)
== END 2023-05-03 03:45 | disposition home or self-care (01) ==
LOC: LBO 03:44
PROVIDERS: PCP Family Medicine; Visit Provider Internal Medicine Endocrinology, Diabetes & Metabolism
DX: R74.8 Abnormal levels of other serum enzymes (principal); E03.9 Hypothyroidism, unspecified
CPT/HCPCS: 36415; 80053; 82306; 83970; 84100; 84439; 84443

== ENCOUNTER 2023-05-03 09:31 | Outpatient (REF) | payer OTHER, SELFPAY ==
[2023-05-03 10:22] LABS: Creatinine,Urine 50.72 mg/dL
[2023-05-03 10:41] LABS: Creatinine,24hr Ur 0.66 g/24hr (0.60-1.80); Total Volume 1300 ml
[2023-05-04 10:05] LABS: Calcium Urine 2.2 mg/dL (See Note); Calcium Urine 24 hr 29 mg/24hr (100-300); Timed Urine Volume 1300 mL
== END 2023-05-03 09:32 | disposition home or self-care (01) ==
LOC: LBN 09:31
PROVIDERS: PCP Family Medicine; Visit Provider Internal Medicine Endocrinology, Diabetes & Metabolism
DX: E03.9 Hypothyroidism, unspecified (principal); R74.8 Abnormal levels of other serum enzymes
CPT/HCPCS: 81050; 82340; 82570

== ENCOUNTER → 2023-08-07 02:47 | Outpatient (CLI) | payer OTHER, SELFPAY ==
--- NOTE | 2023-08-07 06:45 | DI.RAD_ITS ---
Exam(s) XR FOOT LT COMPLETE EXAM: XR FOOT LT COMPLETE CLINICAL HISTORY: Left foot pain,M79.672. TECHNIQUE: 2D digital imaging was performed. Three views. COMPARISON: MR MRI - L LOWER EXT WO AND W CON from 08/25/2010 FINDINGS: BONES: No acute fracture is present. No bony destructive lesion is seen. JOINTS: No dislocation present. Severe degenerative changes 1st MTP joint. Mild degenerative hyman es elsewhere. Hammertoe deformities. SOFT TISSUE: Dorsal swelling. IMPRESSION: Degenerative changes 1st MTP joint. Hammertoe deformities. DATA REPOSITORY: RADIATION DOSE DELIVERED:
--- NOTE | 2023-08-07 06:45 | DI.RAD_ITS ---
Exam(s) XR FOOT RT COMPLETE EXAM: XR FOOT RT COMPLETE CLINICAL HISTORY: right foot pain,M79.671. TECHNIQUE: 2D digital imaging was performed. Three views. COMPARISON: None FINDINGS: BONES: No acute fracture is present. No bony destructive lesion is seen. JOINTS: Subluxation of the 2nd MTP joint. Hammertoe deformities. Moderate degenerative changes at 1 st MTP joint and mild hallux valgus. Flattening of the plantar arch. Mild degenerative changes else where. SOFT TISSUE: Swelling. IMPRESSION: Degenerative changes and hammertoe deformities. Pes planus. DATA REPOSITORY: RADIATION DOSE DELIVERED:
== END ==
PROVIDERS: PCP Family Medicine; Visit Provider Podiatrist
DX: M79.671 Pain in right foot (principal); M20.41 Other hammer toe(s) (acquired), right foot; M19.071 Primary osteoarthritis, right ankle and foot; M21.41 Flat foot [pes planus] (acquired), right foot; M79.672 Pain in left foot; M20.42 Other hammer toe(s) (acquired), left foot; M19.072 Primary osteoarthritis, left ankle and foot
CPT/HCPCS: 73630

== ENCOUNTER 2023-10-01 04:43 | Outpatient (CLI) | payer OTHER, SELFPAY ==
[2023-10-01 12:16] LABS: ALT 15 U/L (14-59); AST 20 U/L (15-37); Albumin 3.7 g/dL (3.4-5.0); Alkaline Phosphatase 141 U/L (46-116); Anion Gap 8.6 mmol/L (3-11); BUN 16 mg/dL (7-18); Bilirubin, Total 0.5 mg/dL (0.2-1.0); CO2 25.4 mmol/L (21.0-32.0); CREATININE 0.8 mg/dL (0.55-1.02); Calcium 8.6 mg/dL (8.5-10.1); Calculated LDL 87 mg/dL (<100); Chloride 101 mmol/L (98-107); Cholesterol 188 mg/dL (<200); Estimated GFR 80.21 (mL/min/1.73m2); Glucose 90 mg/dL (74-106); HDL Cholesterol 77 mg/dL (40-60); Sodium 135 mmol/L (136-145); Triglyceride 120 mg/dL (<150)
[2023-10-01 12:24] LABS: Hemoglobin A1C 5.8 % (<5.7)
[2023-10-01 12:59] LABS: FREE T4 1.37 ng/dL (0.76-1.46); PHOSPHORUS 3.4 mg/dL (2.6-4.7); TSH 1.28 uIU/Ml (0.36-3.74)
[2023-10-01 13:36] LABS: Vitamin D 25 Total 90.5 ng/mL (30-100)
[2023-10-01 18:00] LABS: Parathyroid Hormone,Intact 137 pg/mL (19-88)
[2023-10-01 19:24] LABS: Creatinine,Urine 44.95 mg/dL
[2023-10-01 19:26] LABS: Creatinine,24hr Ur 0.76 g/24hr (0.60-1.80); Total Volume 1700 ml
[2023-10-03 08:49] LABS: Calcium Urine 1.5 mg/dL (See Note); Calcium Urine 24 hr 26 mg/24hr (100-300); Timed Urine Volume 1700 mL
== END 2023-10-01 04:44 | disposition home or self-care (01) ==
LOC: LBO 04:43
PROVIDERS: Internal Medicine Endocrinology, Diabetes & Metabolism; PCP Family Medicine; Visit Provider Family Medicine
DX: R74.8 Abnormal levels of other serum enzymes (principal); R73.03 Prediabetes; E78.5 Hyperlipidemia, unspecified; I10 Essential (primary) hypertension
CPT/HCPCS: 36415; 80053; 80061; 82306; 81050; 82340; 82570; 83036; 83970; 84100; 84439; 84443

== ENCOUNTER 2023-11-23 10:00 | Outpatient (CLI) | payer OTHER, SELFPAY ==
--- NOTE | 2023-11-23 09:30 | DI.RAD_ITS ---
Exam(s) XR KNEE LT 3V AP,LAT,SELWYN EXAM: XR KNEE LT 3V AP,LAT,SELWYN CLINICAL HISTORY: left knee pain. TECHNIQUE: 2D digital imaging was performed of the left knee. Three images were obtained. AP, late ral and PA tunnel views were obtained. COMPARISON: CR LEFT KNEE 3 VIEW COMPLETE from 02/14/2013 CR XR STANDING ALIGNMENT from 10/24/2021 FINDINGS: BONES: No acute fracture is present. No bony destructive lesion is seen. JOINTS: Degenerative changes are seen involving all 3 joint compartments characterized by joint space narrowing and osteophytes. The findings are most marked in the medial femoral tibial joint. There is a very small joint effusion. No loose body. SOFT TISSUE: Normal. IMPRESSION: Marked osteoarthritis of the left knee. DATA REPOSITORY: RADIATION DOSE DELIVERED:
== END 2023-11-23 10:01 | disposition home or self-care (01) ==
LOC: DIORS 10:00
PROVIDERS: PCP Family Medicine; Referring Provider Family Medicine; Visit Provider Physician Assistant
DX: M17.12 Unilateral primary osteoarthritis, left knee
CPT/HCPCS: 73562

== ENCOUNTER 2023-12-20 02:40 | Outpatient (CLI) | payer OTHER, SELFPAY ==
--- NOTE | 2023-12-20 | DI.MAMMO_ITS ---
Exam(s) MAMMO SCREENING EXAM: MAMMO SCREENING CLINICAL HISTORY: Screening, Z12.31 TECHNIQUE: Mammograms were interpreted according to the usual protocol including computer analysis w [employer] CAD system, tomosynthesis and C-view imaging. COMPARISON: 2013 through 2022 FINDINGS: The breasts are composed of mainly fatty density , Breast Density category A. No suspicious masses or suspicious microcalcifications are seen. No skin thickening or abnormal axillary lymph nodes are seen. There has been no significant change from prior exams. IMPRESSION: BI-RADS Category 1, Negative mammogram Yearly screening mammography is recommended. Breast Density - Category A, fatty density. A negative radiographic report should not delay biopsy if a dominant or clinically suspicious mass is present. Up to ten percent of cancers are not identified on mammography. A negative report may reinforce clinical impression. Adenosis and dense breasts may obscure an underlying neoplasm. False positive reports average 6 to 10%. Patient will receive a letter notifying them of these results.
== END 2023-12-20 03:00 ==
LOC: DI 02:40
PROVIDERS: PCP Family Medicine; Visit Provider Family Medicine
DX: Z12.31 Encounter for screening mammogram for malignant neoplasm of breast (principal)
CPT/HCPCS: 77063; 77067

== ENCOUNTER 2024-03-31 04:41 | Outpatient (CLI) | payer OTHER, SELFPAY ==
[2024-03-31 09:55] LABS: ALT 15 U/L (14-59); AST 21 U/L (15-37); Albumin 3.7 g/dL (3.4-5.0); Alkaline Phosphatase 132 U/L (46-116); Anion Gap 9.2 mmol/L (3-11); BUN 8 mg/dL (7-18); Bilirubin, Total 0.44 mg/dL (0.2-1.0); CO2 26.8 mmol/L (21.0-32.0); CREATININE 0.9 mg/dL (0.55-1.02); Calcium 8.7 mg/dL (8.5-10.1); Chloride 105 mmol/L (98-107); Glucose 93 mg/dL (74-106); PHOSPHORUS 3.6 mg/dL (2.6-4.7); Potassium 4.2 mmol/L (3.5-5.1); Sodium 141 mmol/L (136-145); Total Protein 7.2 g/dL (6.4-8.2)
[2024-03-31 10:28] LABS: Vitamin D 25 Total 70.4 ng/mL (30-100)
[2024-03-31 10:35] LABS: Creatinine,Urine 29.13 mg/dL
[2024-03-31 10:40] LABS: Total Volume 2400 ml
[2024-03-31 17:48] LABS: Parathyroid Hormone,Intact 146.3 pg/mL (19.0-88.0)
[2024-04-01 09:39] LABS: Calcium Urine 1.1 mg/dL (See Note); Calcium Urine 24 hr 26 mg/24hr (100-300); Timed Urine Volume 2400 mL
== END 2024-03-31 04:42 | disposition home or self-care (01) ==
PROVIDERS: PCP Family Medicine; Referring Provider Internal Medicine Endocrinology, Diabetes & Metabolism; Visit Provider Internal Medicine Endocrinology, Diabetes & Metabolism
DX: E83.59 Other disorders of calcium metabolism (principal); M81.0 Age-related osteoporosis without current pathological fracture; N25.81 Secondary hyperparathyroidism of renal origin
CPT/HCPCS: 36415; 80053; 82306; 81050; 82340; 82570; 83735; 83970; 84100

== ENCOUNTER 2024-04-28 17:46 | Outpatient (REF) | payer OTHER, SELFPAY ==
[2024-04-28 15:51] LABS: HCT 40.4 % (36.0-46.0); HGB 12.5 g/dL (11.2-15.7); MCH 27.8 pg (27.0-33.0); MCHC 30.9 % (32.0-36.0); MCV 90 fL (80-95); Platelet Count 304 10^3/uL (130-400); RBC 4.49 10^6/uL (3.93-5.22); RDW 13.2 % (11.7-14.6); RDW-SD 43.3 fL; WBC 6.97 10^3/uL (4.4-10.8)
== END 2024-04-28 17:47 | disposition home or self-care (01) ==
LOC: NCHCN 17:46
PROVIDERS: PCP Family Medicine; Visit Provider Family Medicine
DX: R53.83 Other fatigue (principal)
CPT/HCPCS: 85027

== ENCOUNTER 2024-06-30 08:17 | Day surgery (SDC) | payer OTHER, SELFPAY ==
--- NOTE | 2024-06-29 06:59 | W.PM.DSUDISC ---
Date of service: 06/30/24 Discharge Plan Disposition Patient Disposition: Home Condition: Good Discharge Details Reason For Visit: screening colonoscopy Attending Provider: William Baires Primary Care Provider: Jenn Escobar Home Meds and New Rx's Prescriptions: Continued berberine-herbal comb no.18 Capsule 1 cap PO TID Patient Comments: pt reports dose is 500mg TID rosuvastatin 10 mg tablet 10 mg PO DAILY cholecalciferol (vitamin D3) [Tbt-A-Vicgawb] 10 mcg/drop (400 unit/drop) drops 10 mcg PO DAILY phentermine 15 mg capsule 15 mg PO DAILY Rx Instructions: must administer 2 hours after breakfast diphenhydramine-acetaminophen [Tylenol PM Extra Strength] 25-500 mg tablet 1 tab PO QHS PRN levothyroxine 88 mcg capsule 88 mcg PO DAILY alendronate 70 mg tablet 70 mg PO QWEEK coQ10 (ubiquinol) 200 mg capsule 200 mg PO DAILY VB6 P5P 100 mg/gram powder 100 mg PO DIRECTED Rx Instructions: magnesium, b-vitamin supplement. Stress B-Complex 500 mg-400 mcg- 23.9 mg-3 mg tablet 1 tab PO DAILY zinc acetate 50 mg (zinc) capsule 50 mg PO DAILY acetaminophen 500 mg tablet 1,000 mg PO Q8H PRN Qty: 90 0RF Rx Instructions: Take two tablets up to every 8 hours as needed for pain Held Eliquis 5 mg tablet 2.5 mg PO BID Hold Instructions: Resume on 07/01/24. Discontinued bisacodyl [Dulcolax (bisacodyl)] 5 mg tablet,delayed release (DR/EC) 5 mg PO ONCE Qty: 4 0RF Rx Instructions: Take per colonoscopy instructions provided by ordering providers office polyethylene glycol 3350 17 gram/dose powder 17 g PO ONCE Qty: 238 0RF Rx Instructions: Take per colonoscopy instructions provided by ordering providers office Discharge Instructions Instructions: Colon polyps Additional Instructions: Roseanna, was very nice meeting you today. I hope you have a great afternoon. Everything went very smoothly. I did find, and removed 2 polyps today. These were both small, nothing to worry about. Both of these polyps will be tested, and once I know the results of the polyp analysis, my office will be in touch with recommendations for your future colonoscopies. I would like you to hold your Eliquis until tomorrow since we did remove 2 polyps today. You can resume it tomorrow as you normally take it. If you need anything, or have any questions, please do not hesitate to ask, otherwise we will be in touch once the polyp report is complete 1. If tolerated, consume a soft, low fiber diet for 1-2 days. 2[address] Do not drive, drink alcohol, operate machinery, make critical decisions, or do activities that require coordination or balance for 24 hours. 3. Because air was put into your colon during the procedure, expelling air from your rectum (passing gas or farting) is normal. 4. You may not have a bowel movement for 1-3 days because of the colonoscopy prep. This is normal. 5. Go directly to the emergency room if you notice any of the following: Develop chills (warm to touch), or if you have a thermometer and your temperature is above 101 Difficulty breathing or difficultly swallowing Persistent vomiting Severe abdominal pain, other than gas cramps Severe chest pain Black, tarry stools Any bleeding ? exceeding one tablespoon 6. Call your physician if the site where your intravenous was started becomes red, swollen, painful, and warm to touch. 7. Your physician has reviewed your pre-procedure medications. Please continue to take those medications as previously ordered. You will be given specific information/education regarding any changes to your medications before leaving. Activity:: Activity as Tolerated Diet:: As Tolerated Discharge Orders Discharge Orders: Discharge Order (Routine); Ordered 06/29/24 Ordered By: William Baires DS: Diagnosis Discharge Diagnosis (1) Encounter for screening colonoscopy: Status: Acute Asessment and Plan: Follow-up on polypectomy results
--- NOTE | 2024-06-29 07:01 | W.COLOREPORT ---
Date of service: 06/30/24 Time of Service: 10:14 Colonoscopy Report Date of procedure: 06/30/24 Pre-op diagnosis general: screening colonoscopy Post-op diagnosis procedure note: other (Colon polyps) Procedure: colonoscopy with polypectomy Surgeon: William Baires Anesthesia Type: General:No Airway Estimated blood loss (mL): 5 Pathology: other (0.25 cm flat polyp at 70 cm, 0.25 cm flat polyp at 55 cm) Complications: None Disposition: same day Indications: Roseanna is a 69 year old woman who needs a screening colonoscopy Prep: Miralax/Dulcolax Procedure Start Time: 09:33 Procedure End Time: 10:01 Retraction Time: 15 Findings: 0.25 cm flat polyp at 70 cm, 0.25 cm flat polyp at 55 cm Procedure Description: After the induction of anesthesia, and with the patient in left lateral decubitus position, I began by performing an external anorectal exam.? Perineum and skin were normal, as was the anal verge.? There was no evidence of external hemorrhoids.? Next, I performed a digital rectal exam.? I did not appreciate any abnormal findings.? Next, I advanced a colonoscope into the rectal vault.? I performed retroflexion.? This appeared normal.? Using insufflation, I then advanced the colonoscope beyond the rectal folds and into the sigmoid colon before advancing towards the cecum.? The quality of the prep was excellent.? The scope was noted to be in the cecum by identification of the ileocecal valve and appendiceal orifice.? I then began withdrawing the colonoscope using repeated irrigation as necessary for full evaluation of the colonic mucosa. Around 70 cm from the anal verge I identified a 0.25 cm polyp. ?It appeared flat in character. ?I was able to remove this with a cold forcep polypectomy. ?I examined the site, and there was minimal bleeding. ?Once this was completed, I continued to withdraw the scope and examine the remainder of the colonic mucosa. Another 0.25 cm flat polyp was found around 55 cm from the anus. This was also removed without any issues using cold forceps. ?Once the scope was withdrawn to the level of the rectum, great care was taken to examine portions of the rectal folds.? Finally, the scope was withdrawn and the patient was brought to the same-day surgery recovery unit as the anesthetic wore off. ?The findings and instructions were shared with the patient prior to discharge. [place] Bowel Prep [place] Bowel Prep Right Colon: 3 Left Colon: 3 Transverse Colon: 3 Total Score: 9
--- NOTE | 2024-06-29 09:02 | ANES.PREOP_ITS ---
General Info Height: 5 ft 3.5 in Weight: 107.048 kg Body Mass Index (BMI): 41.1 Surgical Procedure: Operation Date: 06/30/24 09:50 Proposed Procedure Side Surgeon p Rolly Baires MD Meds Allergies and Home Medications Allergies Allergy/AdvReac Type Severity Reaction Status Date / Time No Known Allergies Allergy Verified 06/27/24 10:35 Home Medication ?Medication ?Instructions ?Recorded apixaban 5 mg tablet (Eliquis) 2.5 mg PO BID 11/19/20 berberine-herbal comb no.18 capsule 1 cap PO TID 10/04/21 acetaminophen 500 mg tablet 1,000 mg (2 x 500 mg) PO Q8H PRN 10/11/21 pain #90 tabs diphenhydramine 25 1 tab PO QHS PRN 11/21/21 mg-acetaminophen 500 mg tablet (Tylenol PM Extra Strength) alendronate 70 mg tablet 70 mg PO QWEEK 02/26/23 coQ10 (ubiquinol) 200 mg capsule 200 mg PO DAILY 02/26/23 levothyroxine 88 mcg capsule 88 mcg PO DAILY 02/26/23 cholecalciferol (vitamin D3) 10 10 mcg PO DAILY 08/03/23 mcg/drop (400 unit/drop) oral drops (Oyp-E-Vnukbfn) rosuvastatin 10 mg tablet 10 mg PO DAILY 08/03/23 pyridoxal-5 phosphate 100 mg/gram 100 mg PO DIRECTED for insomnia 08/07/23 oral powder (VB6 P5P) B complex-C 500 mg-folic 400 1 tab PO DAILY 05/22/24 mcg-zinc 23.9 mg-copper 3 mg-vit E tablet (Stress B-Complex) zinc acetate 50 mg (zinc) capsule 50 mg PO DAILY 05/22/24 phentermine 15 mg capsule 15 mg PO DAILY 05/26/24 Current Visit Medications: Current Medications Generic Name Dose Route Start Last Admin Trade Name Freq PRN Reason Stop Dose Admin Ringer's Solution 1,000 mls @ 80 mls/hr 06/30/24 06:00 IV 06/30/24 23:59 INFUSION JEZ IV Miscellaneous Supplies 1 each 06/30/24 06:00 Iv Access IV 06/30/24 23:59 DIRECTED JEZ Sodium Chloride 0 ml 06/30/24 06:00 Normal Saline Flush 10 Ml Syr IV 06/30/24 23:59 PRN PRN Sodium Chloride 0 ml 06/30/24 06:00 Normal Saline 10 Ml Vial IJ 06/30/24 23:59 DIRECTED PRN Sterile Water 0 ml 06/30/24 06:00 Water,Injection,Sterile 10 Ml Vial IJ 06/30/24 23:59 DIRECTED PRN PFSH Active Problems Active Problems: Problem Status Onset Code Encounter for screening colonoscopy Acute Z12.11 Bilateral hearing loss Acute H91.93 Left knee DJD Chronic M17.12 Injury of plantar plate of left foot Acute S99.922A Hammertoe of left foot Acute M20.42 Contracture of left Achilles tendon Acute M67.02 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 Ventricular premature complex Acute I49.3 Prediabetes Acute R73.03 Urinary incontinence, mixed Acute N39.46 Senile osteoporosis Acute M81.0 Osteoarthritis of knee Acute M17.9 Essential hypertension Acute I10 Bilateral tinnitus Acute H93.13 Plantar nerve lesion Acute G57.60 Anemia Chronic D64.9 Hyperlipidemia Acute E78.5 Hypothyroidism Chronic E03.9 Urinary incontinence Acute R32 Bilateral sensorineural hearing loss Acute H90.3 Depression Chronic F32.A Urinary and bowel incontinence Acute R32, R15.9 Bunion Acute M21.619 Dupuytren's contracture of left hand Acute M72.0 Lymphedema Acute I89.0 Prediabetes Acute R73.03 Mallet deformity of right little finger Acute M20.011 Hx pulmonary embolism Acute Z86.711 Acquired hypothyroidism Acute 08/10/17 E03.9 Elevated lipids Acute 08/10/17 E78.5 Medical History Medical History (Updated 06/29/24 @ 06:59 by William Baires MD) Hyperparathyroidism History of cervical dysplasia Hx of thromboembolism Hx of tinnitus Obesity Other lymphedema Márquez's neuroma PVC (premature ventricular contraction) HTN (hypertension) Pulmonary embolism Elevated alkaline phosphatase level Osteoporosis Situational depression Venous (peripheral) insufficiency lower extremeties Cardiac murmur reports her naturopathic doctor stated she had a flutter or heart murmur reports it has been mentioned by this provider twice over the past several years Hx of deep venous thrombosis after a fall in 2019 - DVT following considered unprovoked Surgical History Surgical History History of total right knee replacement (10/11/21) Hx of colonoscopy [place] teeth extracted History of additional teeth removed when had braces in her teens Tonsillectomy and adenoidectomy Tobacco Smoking/Tobacco Use Status: Never Passive smoking exposure: Yes Alcohol Alcohol Intake: current Alcohol intake frequency: holidays/special occasions only Alcohol type: wine Substance Use Substance use: Never Substance use type: does not use Vital Signs and Lab Results Lab Results Blood Type / Crossmatch: No Data to Display Complete Blood Count: No Data to Display Complete Metabolic Panel: No Data to Display Liver Function Panel: No Data to Display Coagulation Panel: No Data to Display Cardiac Panel: No Data to Display Arterial Blood Gas: No Data to Display Venous Blood Gas: No Data to Display Pancreas Panel: No Data to Display Thyroid Panel: No Data to Display Infectious Disease: No Data to Display Blood Cultures: No Data to Display Toxicology Panel: No Data to Display Anesthesia Assessment and Plan Anesthesia History Personal History: No History of Anesthesia Complications Family History: No Family History of Anesthesia Complications Exercise Tolerance Exercise Tolerance: Metabolic Equivalents>4 Implantable Cardiac Device Does patient have a Pacemaker or an ICD?: No Airway Exam Known Difficult Airway: No Mallampati Class: 1 Mouth Opening: Normal (> 3cm) Thyromental Distance: Greater than 3 cm Neck Range of Motion: Full ROM Neck Circumference: Normal Teeth Condition: Normal Dentition ASA Classification ASA Score: ASA 3 Emergency Case?: No Anesthesia Plan Resuscitation Status: Full Code Anesthesia Technique: General Anesthesia Airway Planned: Natural Airway Monitors Used: Standard Monitors Preoperative Comments:: 69 yo female for colo. Sig PMHx: HTN, DVT/PE, preDM, hypothyroid, depression, never smoker, EKG: sinus. Previous Anes: - TKA, chloro spinal, prop sedation, no issues.
[2024-06-30 08:47] VITALS: BP 176/67; PULSE 89; RESP 16; TEMP 36.1; O2SAT 96
--- NOTE | 2024-06-30 09:07 | W.ANESPRE ---
General Info Date of Service Date Performed: 06/30/24 Height: 5 ft 3.5 in Weight: 105.1 kg Body Mass Index (BMI): 40.4 Surgical Procedure: Operation Date: 06/30/24 09:50 Proposed Procedure Side Surgeon jd Baires MD Meds Allergies and Home Medications Allergies Allergy/AdvReac Type Severity Reaction Status Date / Time No Known Allergies Allergy Verified 06/30/24 08:56 Home Medication ?Medication ?Instructions ?Recorded apixaban 5 mg tablet (Eliquis) 2.5 mg PO BID 11/19/20 berberine-herbal comb no.18 capsule 1 cap PO TID 10/04/21 acetaminophen 500 mg tablet 1,000 mg (2 x 500 mg) PO Q8H PRN 10/11/21 pain #90 tabs diphenhydramine 25 1 tab PO QHS PRN 11/21/21 mg-acetaminophen 500 mg tablet (Tylenol PM Extra Strength) alendronate 70 mg tablet 70 mg PO QWEEK 02/26/23 coQ10 (ubiquinol) 200 mg capsule 200 mg PO DAILY 02/26/23 levothyroxine 88 mcg capsule 88 mcg PO DAILY 02/26/23 cholecalciferol (vitamin D3) 10 10 mcg PO DAILY 08/03/23 mcg/drop (400 unit/drop) oral drops (Djj-F-Yppitds) rosuvastatin 10 mg tablet 10 mg PO DAILY 08/03/23 pyridoxal-5 phosphate 100 mg/gram 100 mg PO DIRECTED for insomnia 08/07/23 oral powder (VB6 P5P) B complex-C 500 mg-folic 400 1 tab PO DAILY 05/22/24 mcg-zinc 23.9 mg-copper 3 mg-vit E tablet (Stress B-Complex) zinc acetate 50 mg (zinc) capsule 50 mg PO DAILY 05/22/24 phentermine 15 mg capsule 15 mg PO DAILY 05/26/24 Current Visit Medications: Current Medications Generic Name Dose Route Start Last Admin Trade Name Freq PRN Reason Stop Dose Admin Ringer's Solution 1,000 mls @ 80 mls/hr 06/30/24 06:00 IV 06/30/24 23:59 INFUSION JEZ IV Miscellaneous Supplies 1 each 06/30/24 06:00 Iv Access IV 06/30/24 23:59 DIRECTED JEZ Sodium Chloride 0 ml 06/30/24 06:00 Normal Saline Flush 10 Ml Syr IV 06/30/24 23:59 PRN PRN Sodium Chloride 0 ml 06/30/24 06:00 Normal Saline 10 Ml Vial IJ 06/30/24 23:59 DIRECTED PRN Sterile Water 0 ml 06/30/24 06:00 Water,Injection,Sterile 10 Ml Vial IJ 06/30/24 23:59 DIRECTED PRN PFSH Active Problems Active Problems: Problem Status Onset Code Encounter for screening colonoscopy Acute Z12.11 Bilateral hearing loss Acute H91.93 Left knee DJD Chronic M17.12 Injury of plantar plate of left foot Acute S99.922A Hammertoe of left foot Acute M20.42 Contracture of left Achilles tendon Acute M67.02 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 Ventricular premature complex Acute I49.3 Prediabetes Acute R73.03 Urinary incontinence, mixed Acute N39.46 Senile osteoporosis Acute M81.0 Osteoarthritis of knee Acute M17.9 Essential hypertension Acute I10 Bilateral tinnitus Acute H93.13 Plantar nerve lesion Acute G57.60 Anemia Chronic D64.9 Hyperlipidemia Acute E78.5 Hypothyroidism Chronic E03.9 Urinary incontinence Acute R32 Bilateral sensorineural hearing loss Acute H90.3 Depression Chronic F32.A Urinary and bowel incontinence Acute R32, R15.9 Bunion Acute M21.619 Dupuytren's contracture of left hand Acute M72.0 Lymphedema Acute I89.0 Prediabetes Acute R73.03 Mallet deformity of right little finger Acute M20.011 Hx pulmonary embolism Acute Z86.711 Acquired hypothyroidism Acute 08/10/17 E03.9 Elevated lipids Acute 08/10/17 E78.5 Medical History Medical History Hyperparathyroidism History of cervical dysplasia Hx of thromboembolism Hx of tinnitus Obesity Other lymphedema Márquez's neuroma PVC (premature ventricular contraction) HTN (hypertension) Pulmonary embolism Elevated alkaline phosphatase level Osteoporosis Situational depression Venous (peripheral) insufficiency lower extremeties Cardiac murmur reports her naturopathic doctor stated she had a flutter or heart murmur reports it has been mentioned by this provider twice over the past several years Hx of deep venous thrombosis after a fall in 2019 - DVT following considered unprovoked Surgical History Surgical History History of total right knee replacement (10/11/21) Hx of colonoscopy [place] teeth extracted History of additional teeth removed when had braces in her teens Tonsillectomy and adenoidectomy Tobacco Smoking/Tobacco Use Status: Never Passive smoking exposure: Yes Alcohol Alcohol Intake: current Alcohol intake frequency: holidays/special occasions only Alcohol type: wine Substance Use Substance use: Never Substance use type: does not use Vital Signs and Lab Results Vital Signs Most Recent Vital Signs in EMR: Most Recent Vital Signs Temp Pulse Resp BP Pulse Ox 36.1 C L 89 16 176/67 H 96 06/30/24 08:47 06/30/24 08:47 06/30/24 08:47 06/30/24 08:47 06/30/24 08:47 Lab Results Blood Type / Crossmatch: No Data to Display Complete Blood Count: No Data to Display Complete Metabolic Panel: No Data to Display Liver Function Panel: No Data to Display Coagulation Panel: No Data to Display Cardiac Panel: No Data to Display Arterial Blood Gas: No Data to Display Venous Blood Gas: No Data to Display Pancreas Panel: No Data to Display Thyroid Panel: No Data to Display Infectious Disease: No Data to Display Blood Cultures: No Data to Display Toxicology Panel: No Data to Display Anesthesia Assessment and Plan Anesthesia History Personal History: No History of Anesthesia Complications Family History: No Family History of Anesthesia Complications Exercise Tolerance Exercise Tolerance: Metabolic Equivalents>4 Pertinent Negatives Pertinent Negatives: No Symptoms of GERD Cardiac & Pulmonary Exam Cardiac Exam: Normal S1/S2 Heart Sounds Pulmonary Exam: Clear Bilateral Breath Sounds Implantable Cardiac Device Does patient have a Pacemaker or an ICD?: No Airway Exam Known Difficult Airway: No Mallampati Class: 1 Mouth Opening: Normal (> 3cm) Thyromental Distance: Greater than 3 cm Neck Range of Motion: Full ROM Neck Circumference: Normal Teeth Condition: Normal Dentition ASA Classification ASA Score: ASA 2 Emergency Case?: No NPO Status NPO Status: NPO Clears >2 hours, Solids >8 hours Anesthesia Plan Resuscitation Status: Full Code Anesthesia Technique: General Anesthesia Airway Planned: Natural Airway Monitors Used: Standard Monitors
[2024-06-30 09:08] VITALS: BMI 40.4
[2024-06-30] MEDS: Lactated Ringers 1,000 ML 80 ML IV (09:15)
--- NOTE | 2024-06-30 09:53 | BOWEL_PTH ---
PATIENT: Roseanna Olson LOC: [facility] U#:[id number] AGE/SX: 69/F ROOM: RE06/30/[address]: William Baires MD : [id number] BED: DIS: 06/30/2024 SPEC #: [id number] RECD: 06/30/24 13:01 STATUS: MORALES REQ #: [id number] DIONNE: 06/30/24 09:[address]: William Baires DEPT: Surgical Specimen RECD BY: Myesha Schultz ENTERED: 06/30/24 13:02 SP TYPE: Bowel OTHR DR: Jenn Escobar Tissues: 1 - BIOPSY BOWEL 2 - BIOPSY BOWEL Procedures: GROSS AND MICRO LEVEL 4 Comments: [id number]
[2024-06-30 10:07] VITALS: BP 127/77; PULSE 88; RESP 16; TEMP 36.2; O2SAT 96
--- NOTE | 2024-06-30 10:12 | W.ANESPOSTOP ---
Postoperative Evaluation Date, Time and Location Date Performed: 06/30/24 Time Performed: 10:12 Patient Location: Day Surgery Unit Vital Signs Most Recent Imported Vital Signs: Most Recent Vital Signs Temp Pulse Resp BP Pulse Ox 36.1 C L 89 16 176/67 H 96 06/30/24 08:47 06/30/24 08:47 06/30/24 08:47 06/30/24 08:47 06/30/24 08:47 Pain Score Most Recent Pain Score: Most Recent Pain Score Pain Level 0 06/30/24 08:47 Assessment Mental Status: Awake (Alert & Oriented to Patient Baseline) Airway and Respiratory Function: Patent airway with normal (patient baseline) respiratory exam Cardiovascular Function: Hemodynamically Stable Hydration Status: Adequately Hydrated Nausea & Vomiting: No Nausea or Vomiting Pain: Pt. Denies Any Pain Peripheral Nerve Block: Patient did not receive a nerve block
[2024-06-30 10:35] VITALS: BP 118/74; PULSE 61; RESP 16; TEMP 36.3; O2SAT 100
== END 2024-06-30 10:54 | disposition home or self-care (01) ==
LOC: SUR 08:18
PROVIDERS: PCP Family Medicine; Visit Provider Surgery
PROC: 0DJD8ZZ Inspection of Lower Intestinal Tract, Via Natural or Artificial Opening Endoscopic (ICD-10-PCS; CPT 45378; principal; 2024-06-30 09:45)
DX: Z12.11 Encounter for screening for malignant neoplasm of colon (principal); D12.5 Benign neoplasm of sigmoid colon; I10 Essential (primary) hypertension; D12.4 Benign neoplasm of descending colon
CPT/HCPCS: 45380; 88305; J2704

== ENCOUNTER 2024-09-18 02:32 | Outpatient (CLI) | payer OTHER, SELFPAY ==
--- NOTE | 2024-09-18 | DI.DEXA_ITS ---
Exam(s) XR DEXA BONE DENSITY W/WO SRAVAN EXAM: XR DEXA BONE DENSITY W/WO SRAVAN CLINICAL HISTORY: Age-related osteoporosis wo current pathological fx, M81.0; secondary TECHNIQUE: COMPARISON: CR XR DEXA BONE DENSITY W/WO SRAVAN from 08/12/2021 FINDINGS: Lateral Spine Image: Unremarkable. No compression deformities identified. Left hip: There is osteoporosis in the femoral neck with a T-score of -2.7 and a Z-score of -0.9. Total T-Score: -0.5 . This compares to -0.9 on the prior examination. Total Z-Score: 1.0 T- and Z-scores: The total T-score is within normal limits, however there is osteoporosis in the femo ral neck. Lumbar Spine: Total T-Score: 1.0 . This compares to 1.3 on the prior examination. Total Z-Score: 3.1 T- and Z-scores: Within normal limits. IMPRESSION: Note is made of osteoporosis in the left femoral neck.
== END 2024-09-18 02:52 ==
LOC: DI 02:33
PROVIDERS: PCP Family Medicine; Visit Provider Internal Medicine Endocrinology, Diabetes & Metabolism
DX: M81.0 Age-related osteoporosis without current pathological fracture (principal)
CPT/HCPCS: 77080

== ENCOUNTER 2024-09-26 00:56 | Outpatient (CLI) | payer OTHER, SELFPAY ==
[2024-09-26 11:57] LABS: ALT 14 U/L (14-59); AST 24 U/L (15-37); Albumin 3.6 g/dL (3.4-5.0); Alkaline Phosphatase 143 U/L (46-116); Anion Gap 9.9 mmol/L (3-11); BUN 11 mg/dL (7-18); Bilirubin, Total 0.5 mg/dL (0.2-1.0); CO2 28.1 mmol/L (21.0-32.0); CREATININE 0.8 mg/dL (0.55-1.02); Calcium 9.2 mg/dL (8.5-10.1); Chloride 102 mmol/L (98-107); Estimated GFR 79.71 (mL/min/1.73m2); FREE T4 1.47 ng/dL (0.76-1.46); Glucose 92 mg/dL (74-106); Magnesium 1.9 mg/dL (1.8-2.4); PHOSPHORUS 3.1 mg/dL (2.6-4.7); Potassium 3.9 mmol/L (3.5-5.1); Sodium 140 mmol/L (136-145); TSH 1.29 uIU/mL (0.36-3.74); Total Protein 6.9 g/dL (6.4-8.2)
[2024-09-26 12:28] LABS: Vitamin D 25 Total 81 ng/mL (30-100)
[2024-10-01 11:39] LABS: 1,25-Dihydroxyvitamin D 24 pg/mL (18-78)
== END 2024-09-26 00:57 | disposition home or self-care (01) ==
PROVIDERS: PCP Family Medicine; Visit Provider Internal Medicine Endocrinology, Diabetes & Metabolism
DX: M81.0 Age-related osteoporosis without current pathological fracture (principal); N25.81 Secondary hyperparathyroidism of renal origin; E83.59 Other disorders of calcium metabolism; R74.8 Abnormal levels of other serum enzymes; E03.9 Hypothyroidism, unspecified
CPT/HCPCS: 36415; 80053; 82306; 82652; 83735; 84100; 84439; 84443

== ENCOUNTER 2024-09-26 16:37 | Outpatient (REF) | payer OTHER, SELFPAY ==
[2024-09-26 12:19] LABS: Creatinine,Urine 31.12 mg/dL
[2024-09-26 12:20] LABS: Creatinine,24hr Ur 0.65 g/24hr (0.60-1.80); Total Volume 2120 ml
[2024-09-27 08:45] LABS: Calcium Urine 3.5 mg/dL (See Note); Calcium Urine 24 hr 74 mg/24hr (100-300); Timed Urine Volume 2120 mL
== END 2024-09-26 16:38 | disposition home or self-care (01) ==
LOC: LBN 16:37
PROVIDERS: PCP Family Medicine; Visit Provider Internal Medicine Endocrinology, Diabetes & Metabolism
DX: M81.0 Age-related osteoporosis without current pathological fracture (principal); N25.81 Secondary hyperparathyroidism of renal origin; E83.59 Other disorders of calcium metabolism; R74.8 Abnormal levels of other serum enzymes; E03.9 Hypothyroidism, unspecified
CPT/HCPCS: 81050; 82340; 82570

== ENCOUNTER 2025-01-15 04:03 | Outpatient (CLI) | payer OTHER, SELFPAY ==
--- NOTE | 2025-01-15 | DI.MAMMO_ITS ---
Exam(s) MAMMO SCREENING EXAM: MAMMO SCREENING CLINICAL HISTORY: SCREENING MAMMO Z12.31 TECHNIQUE: Bilateral full field digital CC and MLO mammographic images were obtained with 3D tomosynthesis and utilizing computer aided detection (CAD). COMPARISON: Comparison is made with prior examinations. FINDINGS: Masses/Architectural Distortion: No suspicious masses or areas of architectural distortion are present. Microcalcifications: No suspicious pleomorphic-type are seen. Skin Thickening/Nipple Retraction: None. IMPRESSION: 1. No significant interval change with no specific features of malignancy noted. 2. Unless there is more urgent need, screening mammography is recommended, as per [place] [employer] guidelines. BI-RADS Category 1 - Negative Breast Density - Category A - The breast are almost entirely fatty. Breast density Category C or D implies that the patient has dense breast tissue. Dense breast tissue can make it harder to find cancer on a mammogram. Dense breast tissue is also associated with an increased risk of breast cancer. This information about the result of the mammogram report was provided to the patient to raise their awareness. Use this report when you speak with the patient about their risks for breast cancer, which includes their family history. At that time, you may recommend additional screening tests (Ultrasound or MRI) as these tests may add significant information. A negative radiographic report should not delay biopsy if a dominant or clinically suspicious mass is present. Up to ten percent of cancers are not identified on mammography. A negative report may reinforce clinical impression. Adenosis and dense breasts may obscure an underlying neoplasm. False positive reports average 6 to 10%. Patient will receive a letter notifying them of these results.
== END 2025-01-15 04:23 ==
LOC: DI 04:03
PROVIDERS: PCP Family Medicine; Visit Provider Family Medicine
DX: Z12.31 Encounter for screening mammogram for malignant neoplasm of breast (principal)
CPT/HCPCS: 77063; 77067

== ENCOUNTER 2025-04-28 00:20 | Outpatient (CLI) | payer OTHER, SELFPAY ==
[2025-04-28 09:46] LABS: Hemoglobin A1C 5.5 % (<5.7)
[2025-04-28 10:05] LABS: C-Reactive Protein < 0.50 mg/dL (<=0.50)
[2025-04-28 11:01] LABS: ALT 8 U/L (10-49); AST 24 U/L (<34); Albumin 4.1 g/dL (3.2-5.0); Alkaline Phosphatase 100 U/L (46-116); Anion Gap 8 mmol/L (3-11); BUN 9 mg/dL (9-23); Bilirubin, Total 0.4 mg/dL (0.2-1.2); CO2 25.0 mmol/L (20.0-31.0); Calcium 8.6 mg/dL (8.3-10.6); Chloride 108 mmol/L (98-107); Glucose 92 mg/dL (74-106); Potassium 4.5 mmol/L (3.5-5.1); Sodium 141 mmol/L (136-145); Total Protein 6.5 g/dL (5.7-8.2)
== END 2025-04-28 00:21 | disposition home or self-care (01) ==
LOC: LBO 00:20
PROVIDERS: Internal Medicine Endocrinology, Diabetes & Metabolism; PCP Family Medicine; Visit Provider Family Medicine
DX: R73.03 Prediabetes (principal); M25.50 Pain in unspecified joint; M81.0 Age-related osteoporosis without current pathological fracture; N25.81 Secondary hyperparathyroidism of renal origin; E83.59 Other disorders of calcium metabolism; R74.8 Abnormal levels of other serum enzymes
CPT/HCPCS: 36415; 80053; 83036; 84100; 84681; 86140